=== PATIENT | female | born 1980 | race Two or more races ===

== ENCOUNTER 2021-09-16 00:50 | Inpatient (IN) | payer SELFPAY ==
[2021-09-16] VITALS (7 sets, daily range): BP systolic 116–160; BP diastolic 65–92
[~2021-09-16] VITALS: Ht 170.2 cm; Wt 85.3 kg
--- NOTE | 2021-09-16 01:21 | ED.ADGEN ---
Past Medical History Past Surgical History: Other Additional Past Surgical Histo: BREAST AUG, LIPO General Adult EDM: Chief Complaint: CHEST PAIN HPI: HPI: Patient is a 41 year old female coming in for epigastric pain that radiates to her back. Patient states is been present for about 2 days. Says it comes and goes and is worsening foods, especially are fatty or greasy. Patient says she is sometimes vomiting from the pain. Denies any change in bowel movements or diarrhea. Review of Systems: Review of Systems: All other systems within normal limits except for as noted in the HPI Current Medications: Current Medications Medications (Trade) Dose Ordered Sig/Tung Start Time Stop Time Status Last Admin Dose Admin Fentanyl Citrate (Fentanyl 2ml Vial) 75 mcg 1X ONCE 09/16/21 01:30 09/16/21 01:31 DC 09/16/21 01:58 75 MCG Info (CONTRAST GIVEN -- Rx MONITORING) 1 each PRN DAILY PRN 09/16/21 02:45 09/18/21 02:44 Iohexol (Omnipaque 300 Mg/ml) 75 ml 1X ONCE 09/16/21 02:45 09/16/21 02:46 DC 09/16/21 03:30 75 ML Ondansetron HCl (Zofran) 4 mg 1X ONCE 09/16/21 01:30 09/16/21 01:31 DC 09/16/21 01:55 4 MG Allergies: Allergies: Allergies Coded Allergies Type Severity Reaction Last Updated Verified No Known Drug Allergies 09/16/21 No Physical Exam: PE: Constitutional: Well developed, well nourished, no acute distress, non-toxic appearance. [] HENT: Normocephalic, atraumatic, bilateral external ears normal, nose normal. [] Eyes: PERRLA, conjunctiva normal, no discharge. [] Neck: No rigidity, supple, no stridor. [] Cardiovascular: Regular rate and rhythm, brisk cap refill [] Lungs & Thorax: Non labored symmetric respirations, no tachypnea or respiratory distress [] Abdomen: Soft, nondistended, epigastric tenderness and positive Wan sign. Skin: Warm, dry, no erythema, no rash. [] Back: Unremarkable Extremities: No deformities, range of motion grossly intact, no lower extremity edema [] Neurologic: Alert and oriented X 3, no focal deficits noted. [] Psychologic: Affect normal, judgement normal, mood normal. [] Current Patient Data: Labs: Laboratory Tests Test 09/16/21 01:30 White Blood Count 4.3 x10^3/uL (4.0-11.0) Red Blood Count 4.21 x10^6/uL (3.50-5.40) Hemoglobin 12.5 g/dL (12.0-15.5) Hematocrit 36.6 % (36.0-47.0) Mean Corpuscular Volume 87 fL (79-100) Mean Corpuscular Hemoglobin 30 pg (25-35) Mean Corpuscular Hemoglobin Concent 34 g/dL (31-37) Red Cell Distribution Width 13.0 % (11.5-14.5) Platelet Count 232 x10^3/uL (140-400) Neutrophils (%) (Auto) 53 % (31-73) Lymphocytes (%) (Auto) 33 % (24-48) Monocytes (%) (Auto) 8 % (0-9) Eosinophils (%) (Auto) 5 % (0-3) H Basophils (%) (Auto) 1 % (0-3) Neutrophils # (Auto) 2.3 x10^3/uL (1.8-7.7) Lymphocytes # (Auto) 1.4 x10^3/uL (1.0-4.8) Monocytes # (Auto) 0.3 x10^3/uL (0.0-1.1) Eosinophils # (Auto) 0.2 x10^3/uL (0.0-0.7) Basophils # (Auto) 0.0 x10^3/uL (0.0-0.2) Sodium Level 141 mmol/L (136-145) Potassium Level 3.7 mmol/L (3.5-5.1) Chloride Level 104 mmol/L (98-107) Carbon Dioxide Level 25 mmol/L (21-32) Anion Gap 12 (6-14) Blood Urea Nitrogen 8 mg/dL (7-20) Creatinine 0.9 mg/dL (0.6-1.0) Estimated GFR (Cockcroft-Gault) 69.3 BUN/Creatinine Ratio 9 (6-20) Glucose Level 109 mg/dL (70-99) H Calcium Level 8.6 mg/dL (8.5-10.1) Total Bilirubin 2.6 mg/dL (0.2-1.0) H Direct Bilirubin 1.8 mg/dL (0.0-0.2) H Gamma Glutamyl Transpeptidase 280 U/L (5-55) H Aspartate Amino Transferase (AST) 850 U/L (15-37) H Alanine Aminotransferase (ALT) 888 U/L (14-59) H Alkaline Phosphatase 124 U/L (46-116) H Troponin I High Sensitivity 6 ng/L (4-50) Total Protein 7.0 g/dL (6.4-8.2) Albumin 3.8 g/dL (3.4-5.0) Albumin/Globulin Ratio 1.2 (1.0-1.7) Lipase 80 U/L (73-393) Hepatitis A IgM Antibody Nonreactive (Nonreactive) Hepatitis B Surface Antigen Nonreactive (Nonreactive) Hepatitis B Core IgM Antibody Nonreactive (Nonreactive) Hepatitis C IgG Antibody Nonreactive (Nonreactive) Laboratory Tests 09/16/21 01:30 Laboratory Tests 09/16/21 01:30 Vital Signs: Vital Signs Date Time Temp Pulse Resp B/P (MAP) Pulse Ox O2 Delivery O2 Flow Rate FiO2 09/16/21 03:38 80 13 146/78 (100) 98 Room Air 09/16/21 00:55 98.7 98.7 EKG: EKG: [] Heart Score: C/O Chest Pain: Yes HEART Score for Chest Pain: HEART Score for Chest Pain Response (Comments) Value History Slighlty/Non-Suspicious 0 ECG Normal 0 Age < 45 0 Risk Factors 1 or 2 Risk Factors 1 Troponin < Normal Limit 0 Total 1 Risk Factors: Risk Factors: DM, Current or recent (<one month) smoker, HTN, HLP, family history of CAD, obesity. Risk Scores: Score 0 - 3: 2.5% MACE over next 6 weeks - Discharge Home Score 4 - 6: 20.3% MACE over next 6 weeks - Admit for Clinical Observation Score 7 - 10: 72.7% MACE over next 6 weeks - Early Invasive Strategies Radiology/Procedures: Radiology/Procedures: [facility] [address] [place], [place] [id number] IMAGING REPORT Signed PATIENT: MURALI SOLIS ACCOUNT: [id number] : 1980 LOCATION: ER AGE: 41 SEX: F EXAM STATUS: REG ER ORD. PHYSICIAN: SCARLET WALKER MD REASON: RUQ pain, omni 300 75 ml iv PROCEDURE: CT ABD PELV W/ IV CONTRST ONLY Exam: CT abdomen/pelvis with intravenous contrast Indication: Right upper quadrant pain Comparison: Abdominal ultrasound same day Technique: Helical CT imaging performed of the abdomen and pelvis after the intravenous administration of 75 mL Omnipaque 300 contrast. Sagittal and coronal reformats were obtained. One or more of the following individualized dose reduction techniques were utilized for this examination: 1. Automated exposure control 2. Adjustment of the mA and/or kV according to patient size 3. Use of iterative reconstruction technique. Findings: Lower chest: There are partially visualized bilateral breast implants. The lung bases are clear. Heart is normal in size. Liver: Normal. Gallbladder/Biliary Tree: Gallbladder is mildly distended. There is noncalcified cholelithiasis. There appears to be slight gallbladder wall thickening by CT, which was not appreciated on ultrasound. The common bile duct appears dilated measuring up to 8 mm. No intrahepatic biliary duct dilatation. Pancreas: Normal. Spleen: Normal. Adrenal Glands: Normal. Kidneys/Ureters/Bladder: Kidneys are normal in size and enhance symmetrically. No hydronephrosis. Ureters and bladder are normal. Reproductive Organs: Uterus is anteverted. No adnexal mass. Stomach, small bowel, and colon: The stomach is unremarkable. No small bowel obstruction. The appendix is normal. The colon is normal. Vasculature: No aortic aneurysm. No arterial calcifications. Lymph Nodes: No lymphadenopathy. Peritoneum and retroperitoneum: No free fluid or free air. Bones: No acute osseous abnormality. Miscellaneous: None. IMPRESSION: 1. Cholelithiasis. The gallbladder is mildly distended and there is questionable slight wall thickening although this was not appreciated on ultrasound from earlier in the day. Correlate clinically for acute cholecystitis. 2. Dilated common bile duct measuring 8 mm with abrupt termination at the ampulla. Recommend MRCP to evaluate for obstructing stone or lesion. Electronically signed by: Scarlet Bruno MD (09/16/2021 4:06 AM) [facility] DICTATED and SIGNED BY: SCARLET BRUNO MD DATE: 09/16/21 [id number] [] [facility] [address] [place] [address] IMAGING REPORT Addendum PATIENT: MURALI SOLIS ACCOUNT: [id number] : 1980 LOCATION: ER AGE: 41 SEX: F EXAM STATUS: REG ER ORD. PHYSICIAN: SCARLET WALKER MD REASON: RUQ pain PROCEDURE: ABDOMEN LTD ADDENDUM ADDENDUM #1 Upon further review, the common bile duct is likely mildly dilated. This is better seen on subsequent CT abdomen pelvis from same day. Electronically signed by: Scarlet Bruno MD (09/16/2021 4:10 AM) [facility]AM[facility]ATION: US ABDOMEN LIMITED 09/16/2021 2:02 AM INDICATION: Right upper quadrant pain TECHNIQUE: Lynch scale and color Doppler ultrasound images of the right upper quadrant were obtained. COMPARISON: None. FINDINGS: Liver: The liver is normal in size measuring 13 cm in length. Mildly increased hepatic echogenicity. No focal liver lesion. Gallbladder: The gallbladder is normal in caliber. There is cholelithiasis and sludge in the gallbladder. No gallbladder wall thickening. Bile ducts: The common bile duct is normal measuring 4 mm. No intrahepatic biliary duct dilatation. Right kidney: The right kidney measures 11.5 x 3.8 x 3.8 cm. Normal cortical thickness and echogenicity. No hydronephrosis. Other: IVC is patent at the level of the liver. The pancreas is not well visualized. IMPRESSION: Cholelithiasis and sludge in the gallbladder. No evidence of acute cholecystitis. Electronically signed by: Scarlet Bruno MD (09/16/2021 3:25 AM) [facility] DI[facility]ATED AND SIGNED BY: SCARLET BRUNO MD DATE: 09/16/21 [id number] CC: SCARLET WALEKR MD; SANDRA SOUZA MD ~ EXAMINATION: US ABDOMEN LIMITED 09/16/2021 2:02 AM INDICATION: Right upper quadrant pain TECHNIQUE: Lynch scale and color Doppler ultrasound images of the right upper quadrant were obtained. COMPARISON: None. FINDINGS: Liver: The liver is normal in size measuring 13 cm in length. Mildly increased hepatic echogenicity. No focal liver lesion. Gallbladder: The gallbladder is normal in caliber. There is cholelithiasis and sludge in the gallbladder. No gallbladder wall thickening. Bile ducts: The common bile duct is normal measuring 4 mm. No intrahepatic biliary duct dilatation. Right kidney: The right kidney measures 11.5 x 3.8 x 3.8 cm. Normal cortical thickness and echogenicity. No hydronephrosis. Other: IVC is patent at the level of the liver. The pancreas is not well visualized. IMPRESSION: Cholelithiasis and sludge in the gallbladder. No evidence of acute cholecystitis. Electronically signed by: Scarlet Bruno MD (09/16/2021 3:25 AM) [facility] DICTATED and SIGNED BY: SCARLET BRUNO MD DATE: 09/16/21 [id number] 0 Impression: Patient started on Zosyn for concerning acute cholecystitis versus ascending cholangitis. Consult placed for GI and general surgery Course & Med Decision Making: Course & Med Decision Making Pertinent Labs and Imaging studies reviewed. (See chart for details) [] Dragon Disclaimer: Dragon Disclaimer: This electronic medical record was generated, in whole or in part, using a voice recognition dictation system. Departure Departure Impression: Primary Impression: Acute cholangitis Disposition: ADMITTED INPATIENT Admitting Physician: EVETTE Condition: STABLE Referrals: UNKNOWN PCP NAME (PCP) SCARLET WALKER MD Sep 16, 2021 01:21
[2021-09-16] MEDS ORDERED: ONDANSETRON PF 4 MG/2 ML VIAL. IVP ONE (01:30)
[2021-09-16] MEDS ORDERED: fentaNYL PF VIAL 100 MCG/2 ML VIAL IVP ONE (01:30)
[2021-09-16 01:43] LABS: BASO % 1 % (0-3); EOS # 0.2 x10^3/uL (0.0-0.7); EOS % 5 % (0-3); HEMATOCRIT 36.6 % (36.0-47.0); HEMOGLOBIN 12.5 g/dL (12.0-15.5); LYMPH # 1.4 x10^3/uL (1.0-4.8); LYMPH % 33 % (24-48); MEAN CORPUSCULAR HEMOGLOBIN 30 pg (25-35); MEAN CORPUSCULAR HGB CONC 34 g/dL (31-37); MEAN CORPUSCULAR VOLUME 87 fL (79-100); MONO # 0.3 x10^3/uL (0.0-1.1); MONO % 8 % (0-9); NEUT # 2.3 x10^3/uL (1.8-7.7); NEUT % 53 % (31-73); PLATELET COUNT 232 x10^3/uL (140-400); RED BLOOD COUNT 4.21 x10^6/uL (3.50-5.40); WHITE BLOOD COUNT 4.3 x10^3/uL (4.0-11.0)
[2021-09-16 01:55] LABS: CALCIUM 8.6 mg/dL (8.5-10.1); CREATININE 0.9 mg/dL (0.6-1.0); GFR 69.3; POTASSIUM 3.7 mmol/L (3.5-5.1)
[2021-09-16 02:10] LABS: ALBUMIN 3.8 g/dL (3.4-5.0); ALBUMIN/GLOBULIN RATIO 1.2 (1.0-1.7); TOTAL BILIRUBIN 2.6 mg/dL (0.2-1.0)
[2021-09-16] MEDS ORDERED: CONTRAST GIVEN. MC PRN (02:45)
[2021-09-16] MEDS ORDERED: IOHEXOL 300 MG/ML 100ML VIAL. IV ONE (02:45)
--- NOTE | 2021-09-16 03:27 | RAD ---
EXAMINATION: US ABDOMEN LIMITED 09/16/2021 2:02 AM INDICATION: Right upper quadrant pain TECHNIQUE: Lynch scale and color Doppler ultrasound images of the right upper quadrant were obtained. COMPARISON: None. FINDINGS: Liver: The liver is normal in size measuring 13 cm in length. Mildly increased hepatic echogenicity. No focal liver lesion. Gallbladder: The gallbladder is normal in caliber. There is cholelithiasis and sludge in the gallbla dder. No gallbladder wall thickening. Bile ducts: The common bile duct is normal measuring 4 mm. No intrahepatic biliary duct dilatation. Right kidney: The right kidney measures 11.5 x 3.8 x 3.8 cm. Normal cortical thickness and echogenic ity. No hydronephrosis. Other: IVC is patent at the level of the liver. The pancreas is not well visualized. IMPRESSION: Cholelithiasis and sludge in the gallbladder. No evidence of acute cholecystitis. Electronically signed by: Scarlet Bruno MD (09/16/2021 3:25 AM) [facility]
--- NOTE | 2021-09-16 04:08 | RAD ---
Exam: CT abdomen/pelvis with intravenous contrast Indication: Right upper quadrant pain Comparison: Abdominal ultrasound same day Technique: Helical CT imaging performed of the abdomen and pelvis after the intravenous administratio n of 75 mL Omnipaque 300 contrast. Sagittal and coronal reformats were obtained. One or more of the following individualized dose reduction techniques were utilized for this examinat ion: 1. Automated exposure control 2. Adjustment of the mA and/or kV according to patient size 3. Use of iterative reconstruction technique. Findings: Lower chest: There are partially visualized bilateral breast implants. The lung bases are clear. Hear t is normal in size. Liver: Normal. Gallbladder/Biliary Tree: Gallbladder is mildly distended. There is noncalcified cholelithiasis. Ther e appears to be slight gallbladder wall thickening by CT, which was not appreciated on ultrasound. Th e common bile duct appears dilated measuring up to 8 mm. No intrahepatic biliary duct dilatation. Pancreas: Normal. Spleen: Normal. Adrenal Glands: Normal. Kidneys/Ureters/Bladder: Kidneys are normal in size and enhance symmetrically. No hydronephrosis. Ure ters and bladder are normal. Reproductive Organs: Uterus is anteverted. No adnexal mass. Stomach, small bowel, and colon: The stomach is unremarkable. No small bowel obstruction. The appendi x is normal. The colon is normal. Vasculature: No aortic aneurysm. No arterial calcifications. Lymph Nodes: No lymphadenopathy. Peritoneum and retroperitoneum: No free fluid or free air. Bones: No acute osseous abnormality. Miscellaneous: None. IMPRESSION: 1. Cholelithiasis. The gallbladder is mildly distended and there is questionable slight wall thicken ing although this was not appreciated on ultrasound from earlier in the day. Correlate clinically for acute cholecystitis. 2. Dilated common bile duct measuring 8 mm with abrupt termination at the ampulla. Recommend MRCP to evaluate for obstructing stone or lesion. Electronically signed by: Scarlet Bruno MD (09/16/2021 4:06 AM) [facility]
[2021-09-16] MEDS ORDERED: ONDANSETRON PF 4 MG/2 ML VIAL. IVP PRN ×2 (05:00→09:15)
[2021-09-16] MEDS ORDERED: MORPHINE SULFATE 4 MG/ML INJ. IVP PRN (05:00)
[2021-09-16] MEDS ORDERED: PIPERACILLIN/TAZOBACTAM 3.375 GM in IV NORMAL SALINE 50ML 50 ML IV ONE (05:00)
[2021-09-16 05:13] LABS: BILIRUBIN,URINE SMALL (NEG); CLARITY,URINE HAZY; COLOR,URINE YELLOW; NITRITE,URINE NEGATIVE (NEG); PH,URINE 7.5 (<5.0-8.0); PROTEIN,URINE NEGATIVE (NEG-TRACE); UROBILINOGEN,URINE >=8.0 mg/dL (0.2 mg/dL)
[2021-09-16 05:14] LABS: BACTERIA,URINE 0 /HPF (0-FEW); WBC,URINE RARE /HPF (0-4)
[2021-09-16] MEDS: IV NORMAL SALINE 1000ML BAG 1,000 ML IV SCH ×4 (05:56→19:15)
[2021-09-16 06:05] LABS: INFLUENZA A PATIENT NEGATIVE (NEGATIVE); INFLUENZA B PATIENT NEGATIVE (NEGATIVE)
[2021-09-16] MEDS ORDERED: OMEP1CAP32 PO (06:24)
--- NOTE | 2021-09-16 08:12 | PDOC2 ---
GIOVANI FINE [employer] 09/16/21 0812: CONSULT Date of Consult Date of Consult DATE: 09/16/21 TIME: 08:02 Reason for Consult Reason for Consult: acute cholecystitis Referring Physician Referring Physician: ER Identification/Chief Complaint Chief Complaint abdominal pain Source Source: Chart review, Patient History of Present Illness Reason for Visit: Reports epigastric abdominal pain that radiates to back. Began on Wed after a fast food meal and never improved. Associated nausea and emesis. Denies constipation or diarrhea. One similar episode many years ago, however resolved fairly quickly then. Past Medical History Past Medical History no pertinent hx Past Surgical History Past Surgical History: Tubal Ligation, Other (breast augmentation, abdominoplasty) Family History Family History: Other (noncontributory to current illness ) Social History No ALCOHOL: none Drugs: None Lives: Alone Current Problem List Problem List Problems Medical Problems: (1) Acute cholangitis Status: Acute Current Medications Current Medications Current Medications Ondansetron HCl (Zofran) 4 mg 1X ONCE IVP Last administered on 09/16/21at 01:55; Start 09/16/21 at 01:30; Stop 09/16/21 at 01:31; Status DC Fentanyl Citrate (Fentanyl 2ml Vial) 75 mcg 1X ONCE IVP Last administered on 09/16/21at 01:58; Start 09/16/21 at 01:30; Stop 09/16/21 at 01:31; Status DC Iohexol (Omnipaque 300 Mg/ml) 75 ml 1X ONCE IV Last administered on 09/16/21at 03:30; Start 09/16/21 at 02:45; Stop 09/16/21 at 02:46; Status DC Info (CONTRAST GIVEN -- Rx MONITORING) 1 each PRN DAILY PRN MC SEE COMMENTS; Start 09/16/21 at 02:45; Stop 09/18/21 at 02:44 Ondansetron HCl (Zofran) 4 mg PRN Q8HRS PRN IVP NAUSEA/VOMITING; Start 09/16/21 at 05:00; Stop 09/17/21 at 04:59 Morphine Sulfate (Morphine Sulfate) 4 mg PRN Q2HR PRN IVP PAIN Last administered on 09/16/21at 06:09; Start 09/16/21 at 05:00; Stop 09/17/21 at 04:59 Sodium Chloride 1,000 ml @ 100 mls/hr Q10H IV Last administered on 09/16/21at 05:56; Start 09/16/21 at 05:00; Stop 09/17/21 at 04:59 Piperacillin Sod/ Tazobactam Sod 3.375 gm/Sodium Chloride 50 ml @ 100 mls/hr 1X ONCE IV Last administered on 09/16/21at 06:08; Start 09/16/21 at 05:00; Stop 09/16/21 at 05:29; Status DC Active Scripts Active Reported Omeprazole-Bicarb 20-1,100 Cap (Omeprazole/Sodium Bicarbonate) 1 Each Capsule 1 Each PO HS PRN Allergies Allergies: Coded Allergies: No Known Drug Allergies (Unverified , 09/16/21) ROS General: YES: Chills; No: Other (fevers ) PSYCHOLOGICAL ROS: No: Anxiety, Depression Eyes: No Blurry vision, No Double vision HEENT: No: Heacaches, Sore Throat Hematological and Lymphatic: No: Bleeding Problems, Blood Clots Respiratory: No: Cough, Shortness of breath Cardiovascular: No Chest Pain, No Palpitations Gastrointestinal: Yes Other (see hpi) Genitourinary: No Dysuria, No Retention Musculoskeletal: No Joint Pain, No Muscle Pain Neurological: No Impaired Coord/balance, No Numbness/Tingling Skin: No Pruritus, No Rash Physical Exam General: Alert, Oriented X3, Cooperative HEENT: Atraumatic, PERRLA Lungs: Clear to auscultation, Normal air movement Heart: Regular rate, Normal S1, Normal S2 Abdomen: Other (Soft, ND, ttp RUQ) Extremities: No clubbing, No cyanosis Skin: No rashes, No breakdown Neuro: Normal gait, Normal speech Psych/Mental Status: Mental status NL, Mood NL MUSCULOSKELETAL: No deformity, No swelling Vitals VITALS Vital Signs Date Time Temp Pulse Resp B/P (MAP) Pulse Ox O2 Delivery O2 Flow Rate FiO2 09/16/21 06:40 Room Air 09/16/21 05:03 60 14 175/86 (115) 98 09/16/21 00:55 98.7 98.7 Labs Labs Laboratory Tests Test 09/16/21 01:30 09/16/21 04:54 09/16/21 04:58 09/16/21 05:40 White Blood Count 4.3 x10^3/uL (4.0-11.0) Red Blood Count 4.21 x10^6/uL (3.50-5.40) Hemoglobin 12.5 g/dL (12.0-15.5) Hematocrit 36.6 % (36.0-47.0) Mean Corpuscular Volume 87 fL (79-100) Mean Corpuscular Hemoglobin 30 pg (25-35) Mean Corpuscular Hemoglobin Concent 34 g/dL (31-37) Red Cell Distribution Width 13.0 % (11.5-14.5) Platelet Count 232 x10^3/uL (140-400) Neutrophils (%) (Auto) 53 % (31-73) Lymphocytes (%) (Auto) 33 % (24-48) Monocytes (%) (Auto) 8 % (0-9) Eosinophils (%) (Auto) 5 % (0-3) Basophils (%) (Auto) 1 % (0-3) Neutrophils # (Auto) 2.3 x10^3/uL (1.8-7.7) Lymphocytes # (Auto) 1.4 x10^3/uL (1.0-4.8) Monocytes # (Auto) 0.3 x10^3/uL (0.0-1.1) Eosinophils # (Auto) 0.2 x10^3/uL (0.0-0.7) Basophils # (Auto) 0.0 x10^3/uL (0.0-0.2) Sodium Level 141 mmol/L (136-145) Potassium Level 3.7 mmol/L (3.5-5.1) Chloride Level 104 mmol/L (98-107) Carbon Dioxide Level 25 mmol/L (21-32) Anion Gap 12 (6-14) Blood Urea Nitrogen 8 mg/dL (7-20) Creatinine 0.9 mg/dL (0.6-1.0) Estimated GFR (Cockcroft-Gault) 69.3 BUN/Creatinine Ratio 9 (6-20) Glucose Level 109 mg/dL (70-99) Calcium Level 8.6 mg/dL (8.5-10.1) Total Bilirubin 2.6 mg/dL (0.2-1.0) Direct Bilirubin 1.8 mg/dL (0.0-0.2) Gamma Glutamyl Transpeptidase 280 U/L (5-55) Aspartate Amino Transf (AST/SGOT) 850 U/L (15-37) Alanine Aminotransferase (ALT/SGPT) 888 U/L (14-59) Alkaline Phosphatase 124 U/L (46-116) Troponin I High Sensitivity 6 ng/L (4-50) Total Protein 7.0 g/dL (6.4-8.2) Albumin 3.8 g/dL (3.4-5.0) Albumin/Globulin Ratio 1.2 (1.0-1.7) Lipase 80 U/L (73-393) Hepatitis A IgM Antibody Nonreactive (Nonreactive) Hepatitis B Surface Antigen Nonreactive (Nonreactive) Hepatitis B Core IgM Antibody Nonreactive (Nonreactive) Hepatitis C IgG Antibody Nonreactive (Nonreactive) Urine Collection Type Unknown Urine Color Yellow Urine Clarity Hazy Urine pH 7.5 (<5.0-8.0) Urine Specific Viola 1.015 (1.000-1.030) Urine Protein Negative mg/dL (NEG-TRACE) Urine Glucose (UA) Negative mg/dL (NEG) Urine Ketones (Stick) 15 mg/dL (NEG) Urine Blood Moderate (NEG) Urine Nitrite Negative (NEG) Urine Bilirubin Small (NEG) Urine Urobilinogen Dipstick >=8.0 mg/dL (0.2 mg/dL) Urine Leukocyte Esterase Negative (NEG) Urine RBC 6-10 /HPF (0-2) Urine WBC Rare /HPF (0-4) Urine Squamous Epithelial Cells Few /LPF Urine Bacteria 0 /HPF (0-FEW) Urine Mucus Slight /LPF Bedside Urine HCG, Qualitative Hcg negative (Negative) Influenza Type A Antigen Negative (NEGATIVE) Influenza Type B Antigen Negative (NEGATIVE) SARS-CoV-2 Antigen (Rapid) Negative (NEGATIVE) Laboratory Tests Test 09/16/21 01:30 09/16/21 04:54 09/16/21 04:58 09/16/21 05:40 White Blood Count 4.3 x10^3/uL (4.0-11.0) Red Blood Count 4.21 x10^6/uL (3.50-5.40) Hemoglobin 12.5 g/dL (12.0-15.5) Hematocrit 36.6 % (36.0-47.0) Mean Corpuscular Volume 87 fL (79-100) Mean Corpuscular Hemoglobin 30 pg (25-35) Mean Corpuscular Hemoglobin Concent 34 g/dL (31-37) Red Cell Distribution Width 13.0 % (11.5-14.5) Platelet Count 232 x10^3/uL (140-400) Neutrophils (%) (Auto) 53 % (31-73) Lymphocytes (%) (Auto) 33 % (24-48) Monocytes (%) (Auto) 8 % (0-9) Eosinophils (%) (Auto) 5 % (0-3) Basophils (%) (Auto) 1 % (0-3) Neutrophils # (Auto) 2.3 x10^3/uL (1.8-7.7) Lymphocytes # (Auto) 1.4 x10^3/uL (1.0-4.8) Monocytes # (Auto) 0.3 x10^3/uL (0.0-1.1) Eosinophils # (Auto) 0.2 x10^3/uL (0.0-0.7) Basophils # (Auto) 0.0 x10^3/uL (0.0-0.2) Sodium Level 141 mmol/L (136-145) Potassium Level 3.7 mmol/L (3.5-5.1) Chloride Level 104 mmol/L (98-107) Carbon Dioxide Level 25 mmol/L (21-32) Anion Gap 12 (6-14) Blood Urea Nitrogen 8 mg/dL (7-20) Creatinine 0.9 mg/dL (0.6-1.0) Estimated GFR (Cockcroft-Gault) 69.3 BUN/Creatinine Ratio 9 (6-20) Glucose Level 109 mg/dL (70-99) Calcium Level 8.6 mg/dL (8.5-10.1) Total Bilirubin 2.6 mg/dL (0.2-1.0) Direct Bilirubin 1.8 mg/dL (0.0-0.2) Gamma Glutamyl Transpeptidase 280 U/L (5-55) Aspartate Amino Transf (AST/SGOT) 850 U/L (15-37) Alanine Aminotransferase (ALT/SGPT) 888 U/L (14-59) Alkaline Phosphatase 124 U/L (46-116) Troponin I High Sensitivity 6 ng/L (4-50) Total Protein 7.0 g/dL (6.4-8.2) Albumin 3.8 g/dL (3.4-5.0) Albumin/Globulin Ratio 1.2 (1.0-1.7) Lipase 80 U/L (73-393) Hepatitis A IgM Antibody Nonreactive (Nonreactive) Hepatitis B Surface Antigen Nonreactive (Nonreactive) Hepatitis B Core IgM Antibody Nonreactive (Nonreactive) Hepatitis C IgG Antibody Nonreactive (Nonreactive) Urine Collection Type Unknown Urine Color Yellow Urine Clarity Hazy Urine pH 7.5 (<5.0-8.0) Urine Specific Viola 1.015 (1.000-1.030) Urine Protein Negative mg/dL (NEG-TRACE) Urine Glucose (UA) Negative mg/dL (NEG) Urine Ketones (Stick) 15 mg/dL (NEG) Urine Blood Moderate (NEG) Urine Nitrite Negative (NEG) Urine Bilirubin Small (NEG) Urine Urobilinogen Dipstick >=8.0 mg/dL (0.2 mg/dL) Urine Leukocyte Esterase Negative (NEG) Urine RBC 6-10 /HPF (0-2) Urine WBC Rare /HPF (0-4) Urine Squamous Epithelial Cells Few /LPF Urine Bacteria 0 /HPF (0-FEW) Urine Mucus Slight /LPF Bedside Urine HCG, Qualitative Hcg negative (Negative) Influenza Type A Antigen Negative (NEGATIVE) Influenza Type B Antigen Negative (NEGATIVE) SARS-CoV-2 Antigen (Rapid) Negative (NEGATIVE) Assessment/Plan Assessment/Plan cholecystitis plan lap yousuf with grams, may need post ERCP if CBD stone consult, chart 30 min DANIEL NGUYEN MD 09/16/21 1426: CONSULT Assessment/Plan Assessment/Plan Pt seen and examined by myself; 41 year old female who was admitted due to abdominal pain which started last week. The pain has been recurrent, and located in the upper mid abdomen. She denies inciting or relieving factors, but admits to nausea. The pain does not radiate. PMH/PSH/SH as above; ROS: as above, other systems negative; exam: alert, oriented, no neck masses, no scleral icterus, lungs clear, heart RR and R, abdomen soft, prior scars from abdominoplasty, tender upper mid abdomen without guarding, ext neg for edema. labs/xrays reviewed; A/P) 41 year old female with suspected calculous cholecystitis, concerning for choledocholithiasis. Plan for lap yousuf, grams intraop. The details and risks of surgery were reviewed with the patient. She understands and would like to proceed. Time spent with patient 25 min. GIOVANI FINE APRN Sep 16, 2021 08:12 DANIEL NGUYEN MD Sep 16, 2021 14:26
[2021-09-16] MEDS ORDERED: ZOLPIDEM 5 MG TABLET. PO PRN (09:15)
[2021-09-16] MEDS ORDERED: DOCUSATE SODIUM 100 MG CAPSULE. PO PRN (09:15)
[2021-09-16] MEDS ORDERED: diphenhydrAMINE HCL 25 MG CAPSULE PO PRN ×2 (09:15)
[2021-09-16] MEDS ORDERED: ACETAMINOPHEN 325 MG TABLET. PO PRN (09:15)
[2021-09-16] MEDS ORDERED: LORazepam 0.5 MG TABLET PO PRN (09:15)
[2021-09-16] MEDS ORDERED: DEXTROSE 50% 25 GM / 50ML DISP.SYRIN. IV PRN (09:15)
[2021-09-16] MEDS ORDERED: MORPHINE SULFATE 2 MG/ML INJ. IV PRN (09:15)
[2021-09-16] MEDS ORDERED: PROCHLORPERAZINE 10 MG/2 ML VIAL. IV PRN (09:15)
[2021-09-16] MEDS ORDERED: SENNOSIDES 8.6 MG TABLET PO PRN (09:15)
[2021-09-16] MEDS ORDERED: diphenhydrAMINE 50 MG/ML VIAL IVP PRN (09:15)
--- NOTE | 2021-09-16 09:17 | PDOC1 ---
History and Physical Date of Service: DOS: DATE: 09/16/21 TIME: 09:03 Chief Complaint: Chief Complain: Abdominal pain/chest pain. History of Present Illness: HPI: 41 year old female coming in for epigastric pain that radiates to her back. Patient states is been present for about 2 days. Says it comes and goes and is worsening foods, especially are fatty or greasy. Patient says she is sometimes vomiting from the pain. Denies any change in bowel movements or diarrhea. Past Medical/Surgical History: PMH/PSH: Past Surgical History: BREAST AUG, LIPO Allergies: Allergies: Coded Allergies: No Known Drug Allergies (Unverified , 09/16/21) Family History: Family History: Reviewed with no relative findings in the chart Social History: Social History: Denies alcohol, tobacco or drug abuse Current Medications: Current Medications Current Medications Ondansetron HCl (Zofran) 4 mg 1X ONCE IVP Last administered on 09/16/21at 01:55; Start 09/16/21 at 01:30; Stop 09/16/21 at 01:31; Status DC Fentanyl Citrate (Fentanyl 2ml Vial) 75 mcg 1X ONCE IVP Last administered on 09/16/21at 01:58; Start 09/16/21 at 01:30; Stop 09/16/21 at 01:31; Status DC Iohexol (Omnipaque 300 Mg/ml) 75 ml 1X ONCE IV Last administered on 09/16/21at 03:30; Start 09/16/21 at 02:45; Stop 09/16/21 at 02:46; Status DC Info (CONTRAST GIVEN -- Rx MONITORING) 1 each PRN DAILY PRN MC SEE COMMENTS; Start 09/16/21 at 02:45; Stop 09/18/21 at 02:44 Ondansetron HCl (Zofran) 4 mg PRN Q8HRS PRN IVP NAUSEA/VOMITING; Start 09/16/21 at 05:00; Stop 09/17/21 at 04:59 Morphine Sulfate (Morphine Sulfate) 4 mg PRN Q2HR PRN IVP PAIN Last administered on 09/16/21at 06:09; Start 09/16/21 at 05:00; Stop 09/17/21 at 04:59 Sodium Chloride 1,000 ml @ 100 mls/hr Q10H IV Last administered on 09/16/21at 05:56; Start 09/16/21 at 05:00; Stop 09/17/21 at 04:59 Piperacillin Sod/ Tazobactam Sod 3.375 gm/Sodium Chloride 50 ml @ 100 mls/hr 1X ONCE IV Last administered on 09/16/21at 06:08; Start 09/16/21 at 05:00; Stop 09/16/21 at 05:29; Status DC Cefazolin Sodium/ Dextrose 50 ml @ 100 mls/hr 1X PREOP PRN IV PRIOR TO PROCEDURE; Start 09/16/21 at 09:00; Stop 09/17/21 at 08:59 Active Scripts Active Reported Omeprazole-Bicarb 20-1,100 Cap (Omeprazole/Sodium Bicarbonate) 1 Each Capsule 1 Each PO HS PRN ROS: Review of Systems Review of System REVIEW OF SYSTEMS: GENERAL: Denies weakness SKIN: No bruising, hair changes or rashes. EYES: No blurred, double or loss of vision. NOSE AND THROAT: No history of nosebleeds, hoarseness or sore throat. HEART: No history of palpitations, chest pain or shortness of breath on exertion. LUNGS: Denies cough, hemoptysis, wheezing or shortness of breath. GASTROINTESTINAL: Denies changes in appetite, nausea, vomiting, diarrhea or constipation. GENITOURINARY: No history of frequency, urgency, hesitancy or nocturia. NEUROLOGIC: Denies history of numbness, tingling, or tremor. PSYCHIATRIC: No history of panic, anxiety or depression. ENDOCRINE: No history of heat or cold intolerance, polyuria or polydipsia. EXTREMITIES: Denies joint pain, pain on walking or stiffness. Physical Exam: Vital Signs: Vital Signs Date Time Temp Pulse Resp B/P (MAP) Pulse Ox O2 Delivery O2 Flow Rate FiO2 09/16/21 07:00 98.3 58 16 116/71 (86) 97 Room Air 98.3 Physcial Exam: GEN: No apparent distress. Alert and oriented HEENT: Normal cephalic, atraumatic, external auditory canals are patent EYES: Extraocular muscles are intact, pupil are equally round and reactive to light and accommodation MUSCULOSKELETAL: Well developed , well nourished, good range of motion ENDOCRINE: No thyromegaly was palpated LYMPHATICS: No cervical chain or axillary nodes were noted HEMATOPOIETIC: No bruising NECK: Supple, no JVD, no thyromegaly was noted LUNGS: Clear to auscultation in all lung jiménez without rhonchi or wheezing HEART: RRR, S!, S2 present. Peripheral pulses intact, no obvious murmurs noted ABDOMEN: Soft, nontender. Positive bowel sounds, no organomegaly, normal bowel sounds EXTREMITIES: Without clubbing, cyanosis, or edema. Pedal pulses intact. Negative Homans sign NEUROLOGIC: Normal speech and tone. A&O x 3, moves all extremities, no obvious focal deficits PSYCHIATRIC: Normal affect, normal mood. Stable SKIN: No ulcerations or rashes, good skin turgor, no jaundice VASCULAR: Good capillary refill, neurovascular bundle appears to be intact Labs: Labs: Laboratory Tests Test 09/16/21 01:30 09/16/21 04:54 09/16/21 04:58 09/16/21 05:40 White Blood Count 4.3 x10^3/uL (4.0-11.0) Red Blood Count 4.21 x10^6/uL (3.50-5.40) Hemoglobin 12.5 g/dL (12.0-15.5) Hematocrit 36.6 % (36.0-47.0) Mean Corpuscular Volume 87 fL (79-100) Mean Corpuscular Hemoglobin 30 pg (25-35) Mean Corpuscular Hemoglobin Concent 34 g/dL (31-37) Red Cell Distribution Width 13.0 % (11.5-14.5) Platelet Count 232 x10^3/uL (140-400) Neutrophils (%) (Auto) 53 % (31-73) Lymphocytes (%) (Auto) 33 % (24-48) Monocytes (%) (Auto) 8 % (0-9) Eosinophils (%) (Auto) 5 % (0-3) Basophils (%) (Auto) 1 % (0-3) Neutrophils # (Auto) 2.3 x10^3/uL (1.8-7.7) Lymphocytes # (Auto) 1.4 x10^3/uL (1.0-4.8) Monocytes # (Auto) 0.3 x10^3/uL (0.0-1.1) Eosinophils # (Auto) 0.2 x10^3/uL (0.0-0.7) Basophils # (Auto) 0.0 x10^3/uL (0.0-0.2) Sodium Level 141 mmol/L (136-145) Potassium Level 3.7 mmol/L (3.5-5.1) Chloride Level 104 mmol/L (98-107) Carbon Dioxide Level 25 mmol/L (21-32) Anion Gap 12 (6-14) Blood Urea Nitrogen 8 mg/dL (7-20) Creatinine 0.9 mg/dL (0.6-1.0) Estimated GFR (Cockcroft-Gault) 69.3 BUN/Creatinine Ratio 9 (6-20) Glucose Level 109 mg/dL (70-99) Calcium Level 8.6 mg/dL (8.5-10.1) Total Bilirubin 2.6 mg/dL (0.2-1.0) Direct Bilirubin 1.8 mg/dL (0.0-0.2) Gamma Glutamyl Transpeptidase 280 U/L (5-55) Aspartate Amino Transf (AST/SGOT) 850 U/L (15-37) Alanine Aminotransferase (ALT/SGPT) 888 U/L (14-59) Alkaline Phosphatase 124 U/L (46-116) Troponin I High Sensitivity 6 ng/L (4-50) Total Protein 7.0 g/dL (6.4-8.2) Albumin 3.8 g/dL (3.4-5.0) Albumin/Globulin Ratio 1.2 (1.0-1.7) Lipase 80 U/L (73-393) Hepatitis A IgM Antibody Nonreactive (Nonreactive) Hepatitis B Surface Antigen Nonreactive (Nonreactive) Hepatitis B Core IgM Antibody Nonreactive (Nonreactive) Hepatitis C IgG Antibody Nonreactive (Nonreactive) Urine Collection Type Unknown Urine Color Yellow Urine Clarity Hazy Urine pH 7.5 (<5.0-8.0) Urine Specific [place] 1.015 (1.000-1.030) Urine Protein Negative mg/dL (NEG-TRACE) Urine Glucose (UA) Negative mg/dL (NEG) Urine Ketones (Stick) 15 mg/dL (NEG) Urine Blood Moderate (NEG) Urine Nitrite Negative (NEG) Urine Bilirubin Small (NEG) Urine Urobilinogen Dipstick >=8.0 mg/dL (0.2 mg/dL) Urine Leukocyte Esterase Negative (NEG) Urine RBC 6-10 /HPF (0-2) Urine WBC Rare /HPF (0-4) Urine Squamous Epithelial Cells Few /LPF Urine Bacteria 0 /HPF (0-FEW) Urine Mucus Slight /LPF Bedside Urine HCG, Qualitative Hcg negative (Negative) Influenza Type A Antigen Negative (NEGATIVE) Influenza Type B Antigen Negative (NEGATIVE) SARS-CoV-2 Antigen (Rapid) Negative (NEGATIVE) Laboratory Tests Test 09/16/21 01:30 09/16/21 04:54 09/16/21 04:58 09/16/21 05:40 White Blood Count 4.3 x10^3/uL (4.0-11.0) Red Blood Count 4.21 x10^6/uL (3.50-5.40) Hemoglobin 12.5 g/dL (12.0-15.5) Hematocrit 36.6 % (36.0-47.0) Mean Corpuscular Volume 87 fL (79-100) Mean Corpuscular Hemoglobin 30 pg (25-35) Mean Corpuscular Hemoglobin Concent 34 g/dL (31-37) Red Cell Distribution Width 13.0 % (11.5-14.5) Platelet Count 232 x10^3/uL (140-400) Neutrophils (%) (Auto) 53 % (31-73) Lymphocytes (%) (Auto) 33 % (24-48) Monocytes (%) (Auto) 8 % (0-9) Eosinophils (%) (Auto) 5 % (0-3) Basophils (%) (Auto) 1 % (0-3) Neutrophils # (Auto) 2.3 x10^3/uL (1.8-7.7) Lymphocytes # (Auto) 1.4 x10^3/uL (1.0-4.8) Monocytes # (Auto) 0.3 x10^3/uL (0.0-1.1) Eosinophils # (Auto) 0.2 x10^3/uL (0.0-0.7) Basophils # (Auto) 0.0 x10^3/uL (0.0-0.2) Sodium Level 141 mmol/L (136-145) Potassium Level 3.7 mmol/L (3.5-5.1) Chloride Level 104 mmol/L (98-107) Carbon Dioxide Level 25 mmol/L (21-32) Anion Gap 12 (6-14) Blood Urea Nitrogen 8 mg/dL (7-20) Creatinine 0.9 mg/dL (0.6-1.0) Estimated GFR (Cockcroft-Gault) 69.3 BUN/Creatinine Ratio 9 (6-20) Glucose Level 109 mg/dL (70-99) Calcium Level 8.6 mg/dL (8.5-10.1) Total Bilirubin 2.6 mg/dL (0.2-1.0) Direct Bilirubin 1.8 mg/dL (0.0-0.2) Gamma Glutamyl Transpeptidase 280 U/L (5-55) Aspartate Amino Transf (AST/SGOT) 850 U/L (15-37) Alanine Aminotransferase (ALT/SGPT) 888 U/L (14-59) Alkaline Phosphatase 124 U/L (46-116) Troponin I High Sensitivity 6 ng/L (4-50) Total Protein 7.0 g/dL (6.4-8.2) Albumin 3.8 g/dL (3.4-5.0) Albumin/Globulin Ratio 1.2 (1.0-1.7) Lipase 80 U/L (73-393) Hepatitis A IgM Antibody Nonreactive (Nonreactive) Hepatitis B Surface Antigen Nonreactive (Nonreactive) Hepatitis B Core IgM Antibody Nonreactive (Nonreactive) Hepatitis C IgG Antibody Nonreactive (Nonreactive) Urine Collection Type Unknown Urine Color Yellow Urine Clarity Hazy Urine pH 7.5 (<5.0-8.0) Urine Specific [place] 1.015 (1.000-1.030) Urine Protein Negative mg/dL (NEG-TRACE) Urine Glucose (UA) Negative mg/dL (NEG) Urine Ketones (Stick) 15 mg/dL (NEG) Urine Blood Moderate (NEG) Urine Nitrite Negative (NEG) Urine Bilirubin Small (NEG) Urine Urobilinogen Dipstick >=8.0 mg/dL (0.2 mg/dL) Urine Leukocyte Esterase Negative (NEG) Urine RBC 6-10 /HPF (0-2) Urine WBC Rare /HPF (0-4) Urine Squamous Epithelial Cells Few /LPF Urine Bacteria 0 /HPF (0-FEW) Urine Mucus Slight /LPF Bedside Urine HCG, Qualitative Hcg negative (Negative) Influenza Type A Antigen Negative (NEGATIVE) Influenza Type B Antigen Negative (NEGATIVE) SARS-CoV-2 Antigen (Rapid) Negative (NEGATIVE) Images: Images PROCEDURE: CT ABD PELV W/ IV CONTRST ONLY Exam: CT abdomen/pelvis with intravenous contrast Indication: Right upper quadrant pain Comparison: Abdominal ultrasound same day Technique: Helical CT imaging performed of the abdomen and pelvis after the intravenous administration of 75 mL Omnipaque 300 contrast. Sagittal and coronal reformats were obtained. One or more of the following individualized dose reduction techniques were utilized for this examination: 1. Automated exposure control 2. Adjustment of the mA and/or kV according to patient size 3. Use of iterative reconstruction technique. Findings: Lower chest: There are partially visualized bilateral breast implants. The lung bases are clear. Heart is normal in size. Liver: Normal. Gallbladder/Biliary Tree: Gallbladder is mildly distended. There is noncalcified cholelithiasis. There appears to be slight gallbladder wall thickening by CT, which was not appreciated on ultrasound. The common bile duct appears dilated measuring up to 8 mm. No intrahepatic biliary duct dilatation. Pancreas: Normal. Spleen: Normal. Adrenal Glands: Normal. Kidneys/Ureters/Bladder: Kidneys are normal in size and enhance symmetrically. No hydronephrosis. Ureters and bladder are normal. Reproductive Organs: Uterus is anteverted. No adnexal mass. Stomach, small bowel, and colon: The stomach is unremarkable. No small bowel obstruction. The appendix is normal. The colon is normal. Vasculature: No aortic aneurysm. No arterial calcifications. Lymph Nodes: No lymphadenopathy. Peritoneum and retroperitoneum: No free fluid or free air. Bones: No acute osseous abnormality. Miscellaneous: None. IMPRESSION: 1. Cholelithiasis. The gallbladder is mildly distended and there is questionable slight wall thickening although this was not appreciated on ultrasound from earlier in the day. Correlate clinically for acute cholecystitis. 2. Dilated common bile duct measuring 8 mm with abrupt termination at the ampulla. Recommend MRCP to evaluate for obstructing stone or lesion. PROCEDURE: ABDOMEN LTD ADDENDUM ADDENDUM #1 Upon further review, the common bile duct is likely mildly dilated. This is better seen on subsequent CT abdomen pelvis from same day. Electronically signed by: Scarlet Bruno MD (09/16/2021 4:10 AM) [facility]AM[facility]ATION: US ABDOMEN LIMITED 09/16/2021 2:02 AM INDICATION: Right upper quadrant pain TECHNIQUE: Lynch scale and color Doppler ultrasound images of the right upper quadrant were obtained. COMPARISON: None. FINDINGS: Liver: The liver is normal in size measuring 13 cm in length. Mildly increased hepatic echogenicity. No focal liver lesion. Gallbladder: The gallbladder is normal in caliber. There is cholelithiasis and sludge in the gallbladder. No gallbladder wall thickening. Bile ducts: The common bile duct is normal measuring 4 mm. No intrahepatic biliary duct dilatation. Right kidney: The right kidney measures 11.5 x 3.8 x 3.8 cm. Normal cortical thickness and echogenicity. No hydronephrosis. Other: IVC is patent at the level of the liver. The pancreas is not well visual ized. IMPRESSION: Cholelithiasis and sludge in the gallbladder. No evidence of acute cholecystitis. Assessment/Plan Assessment/Plan Acute abdominal pain secondary to cholelithiasis Choledocholithiasis Transaminitis suggestive of obstructive biliary disease Admit to hospitalist service for further management General surgery consult Continue IV fluids IV pain management Lovenox for DVT prophylaxis Protonix GI prophylaxis NPO CODE STATUS full Discussed with RN and SW Disposition inpatient management as above DPOA: Justifications for Admission Other Justification SHILO COFFEY MD Sep 16, 2021 09:17
[2021-09-16] MEDS: ENOXAPARIN 40 MG/0.4 ML SYRINGE. SQ SCH (09:41)
[2021-09-16] MEDS ORDERED: BUPIVACAINE-EPI 0.5% 30 ML VIAL KIT. ONE ×2 (12:19→13:13)
[2021-09-16] MEDS ORDERED: IOHEXOL 300 MG/ML 50 ML VIAL. ONE (12:19)
[2021-09-16] MEDS ORDERED: SURGICEL HEMOSTAT 4X8 EACH. ONE (12:19)
[2021-09-16] MEDS ORDERED: ROCURONIUM 50 MG/5 ML VIAL. ONE (12:29)
[2021-09-16] MEDS ORDERED: LIDOCAINE 2% PF 5 ML VIAL. ONE (12:29)
[2021-09-16] MEDS ORDERED: fentaNYL PF VIAL 100 MCG/2 ML VIAL ONE ×2 (12:29→14:57)
[2021-09-16] MEDS ORDERED: ONDANSETRON PF 4 MG/2 ML VIAL. ONE (12:29)
[2021-09-16] MEDS ORDERED: DEXAMETHASONE SOD PHOS 4 MG/ML VIAL ONE (12:29)
[2021-09-16] MEDS ORDERED: PROPOFOL 10 MG/ML (20ML) VIAL. IV ONE (12:29)
[2021-09-16] MEDS ORDERED: MIDAZOLAM HCL/PF 2 MG/2 ML VIAL. ONE (12:40)
[2021-09-16] MEDS ORDERED: MORPHINE SULFATE 2 MG/ML INJ. IVP PRN (12:45)
[2021-09-16] MEDS ORDERED: HYDROmorphone 2 MG/ML INJ. IVP PRN (12:45)
[2021-09-16] MEDS ORDERED: IV RINGERS,LACTATED 1000ML 1,000 ML IV SCH (12:45)
[2021-09-16] MEDS ORDERED: PROCHLORPERAZINE 10 MG/2 ML VIAL. IVP PRN (12:45)
[2021-09-16] MEDS ORDERED: fentaNYL PF VIAL 100 MCG/2 ML VIAL IVP PRN (12:45)
[2021-09-16] MEDS ORDERED: SUCCINYLCHOLINE 200 MG/10 ML VIAL. ONE (13:05)
[2021-09-16] MEDS ORDERED: HYDROmorphone 2 MG/ML INJ. ONE (13:28)
[2021-09-16] MEDS ORDERED: KETOROLAC 30 MG/ML VIAL. ONE (13:28)
[2021-09-16] MEDS ORDERED: NEOSTIGMINE METHYLSULFATE 5 MG/5 ML SYRINGE. ONE (13:33)
[2021-09-16] MEDS ORDERED: GLYCOPYRROLATE 1 MG/5 ML VIAL. ONE (13:33)
--- NOTE | 2021-09-16 14:21 | PDOC4 ---
Operative Note Operative Note Operative Note: Preoperative Diagnosis: Calculous cholecystitis Postoperative Diagnosis: Same, choledocholithiasis Procedure: Laparoscopic cholecystectomy with intraoperative cholangiogram Surgeons: Rey Gang Punch Operator: LINDSAY Bertrand Anesthesia: Gen. Estimated Blood Loss: 20 mL Specimen: Gallbladder to pathology Drains: 19 Turkish MARJORIE drain right upper quadrant Complications: None Indications: The patient is a 41-year-old female was been having recurrent upper abdominal pain. Her evaluation has shown gallstones with elevated liver tests worrisome for choledocholithiasis. Surgical treatment was offered by means of a laparoscopic cholecystectomy. The risks of surgery were discussed which include bleeding, infection, bile duct injury, bile leak, pain, the potential for additional surgeries or procedures. The patient understands and would like to proceed. Description: The patient was taken to the operating room and laid supine on the operating table. General anesthesia was performed. The abdomen was prepped with ChloraPrep and draped in a standard surgical fashion. A small incision was made in the right abdomen through which a visualized 5 mm trocar was inserted. A pneumoperitoneum was created and the laparoscope introduced. In the upper midabdomen a 12 mm trocar was inserted and in the right upper quadrant two 5 mm trochars were inserted. The gallbladder was tense and 50 cc of bilious fluid was aspirated providing decompression. The gallbladder was retracted cephalad. The cystic duct was dissected free from surrounding tissues. The cystic duct was markedly dilated. One clip was placed on the duct near the gallbladder junction. An opening was made in the duct revealing a sizable stone which was extracted. A cholangiocatheter placed within and secured with a clip. Using contrast dye and fluoroscopy an intraoperative cholangiogram was performed. This showed a filling defect with some degree of obstruction in the the distal common bile duct. 1 mg of glucagon was administered and several passes were made with a Davian catheter and attempts to retrieve the stone. These were unsuccessful. The clip and catheter were then withdrawn. Three clips were placed on the cystic duct and it was divided. The cystic artery was then identified, dissected free, doubly clipped and divided as well. The gallbladder was then mobilized away from the liver with cautery. The gallbladder was then placed in an endoscopic bag and extracted at the superior trocar site. The fascia there was closed with an 0 Vicryl suture and infiltrated with 0.5% marcaine. All blood and irrigation fluid was suctioned and hemostasis was good. The remaining ports were removed and the pneumoperitoneum was relieved. The skin incisions were closed using 4-0 Monocryl suture. Steri-Strips and dressings were then applied. The patient tolerated the procedure well and was sent to the recovery room in stable condition. At the end of the case all counts were correct. DANIEL NGUYEN MD Sep 16, 2021 14:21
[2021-09-16] MEDS: fentaNYL PF VIAL 100 MCG/2 ML VIAL IVP PRN ×2 (15:01→15:10)
[2021-09-16] MEDS: MORPHINE SULFATE 2 MG/ML INJ. IVP PRN ×2 (15:40→22:48)
[2021-09-17] MEDS: IV NORMAL SALINE 1000ML BAG 1,000 ML IV SCH ×2 (01:00→11:05)
--- NOTE | 2021-09-17 01:10 | EKG ---
[facility] [address] [place] [address] Test Date: 2021-09-16 Test Time: 00:57:48 Pat Name: MURALI SOLIS Department: Room: [facility] Gender: F Ironer Sock: : 1980 Requested By: CORY WALKER Order Number: [id number] Reading MD: Johnny Jackson MD Measurements Intervals [place] Rate: 69 P: 23 HI: 150 QRS: 38 QRSD: 78 T: 38 QT: 384 QTc: 413 Interpretive Statements SINUS RHYTHM Electronically Signed On 09-18-2021 10:16:25 PHARMACIST APPRENTICE by Johnny Jackson MD
[2021-09-17 03:00] VITALS: BP 124/74
[2021-09-17] MEDS: MORPHINE SULFATE 2 MG/ML INJ. IVP PRN ×2 (05:28→08:37)
[2021-09-17 07:00] VITALS: BP 169/98
[2021-09-17 07:28] LABS: BASO % 0 % (0-3); EOS % 1 % (0-3); HEMATOCRIT 38.1 % (36.0-47.0); HEMOGLOBIN 12.6 g/dL (12.0-15.5); LYMPH # 1.9 x10^3/uL (1.0-4.8); LYMPH % 27 % (24-48); MEAN CORPUSCULAR HEMOGLOBIN 29 pg (25-35); MEAN CORPUSCULAR HGB CONC 33 g/dL (31-37); MEAN CORPUSCULAR VOLUME 88 fL (79-100); MONO # 0.4 x10^3/uL (0.0-1.1); MONO % 6 % (0-9); NEUT # 4.5 x10^3/uL (1.8-7.7); NEUT % 66 % (31-73); PLATELET COUNT 231 x10^3/uL (140-400); RED BLOOD COUNT 4.34 x10^6/uL (3.50-5.40); RED CELL DISTRIBUTION WIDTH 13.3 % (11.5-14.5); WHITE BLOOD COUNT 6.9 x10^3/uL (4.0-11.0)
[2021-09-17 07:50] LABS: ALBUMIN 3.2 g/dL (3.4-5.0); CALCIUM 8.2 mg/dL (8.5-10.1); CREATININE 0.7 mg/dL (0.6-1.0); GFR 92.7; POTASSIUM 3.7 mmol/L (3.5-5.1); TOTAL BILIRUBIN 1.2 mg/dL (0.2-1.0); TOTAL PROTEIN 6.5 g/dL (6.4-8.2)
--- NOTE | 2021-09-17 08:23 | PDOC ---
SURGICAL PROGRESS NOTE DATE: 09/17/21 TIME: 08:21 Subjective on the phone during visit RUQ pain Vital Signs Vital Signs Date Time Temp Pulse Resp B/P (MAP) Pulse Ox O2 Delivery O2 Flow Rate FiO2 09/17/21 07:00 98.5 72 18 169/98 (121) 96 Room Air 98.5 09/16/21 22:48 6.0 I&O Intake and Output 09/17/21 07:00 Intake Total 1250 ml Output Total 20 ml Balance 1230 ml Intake Oral 0 ml IV Total 1250 ml Output Estimated Blood Loss 20 ml # Voids 2 General: Alert, Cooperative Abdomen: Soft, Other (floridalma serosang ) Labs Laboratory Tests Test 09/16/21 01:30 09/16/21 04:54 09/16/21 04:58 09/16/21 05:40 White Blood Count 4.3 x10^3/uL (4.0-11.0) Red Blood Count 4.21 x10^6/uL (3.50-5.40) Hemoglobin 12.5 g/dL (12.0-15.5) Hematocrit 36.6 % (36.0-47.0) Mean Corpuscular Volume 87 fL (79-100) Mean Corpuscular Hemoglobin 30 pg (25-35) Mean Corpuscular Hemoglobin Concent 34 g/dL (31-37) Red Cell Distribution Width 13.0 % (11.5-14.5) Platelet Count 232 x10^3/uL (140-400) Neutrophils (%) (Auto) 53 % (31-73) Lymphocytes (%) (Auto) 33 % (24-48) Monocytes (%) (Auto) 8 % (0-9) Eosinophils (%) (Auto) 5 % (0-3) Basophils (%) (Auto) 1 % (0-3) Neutrophils # (Auto) 2.3 x10^3/uL (1.8-7.7) Lymphocytes # (Auto) 1.4 x10^3/uL (1.0-4.8) Monocytes # (Auto) 0.3 x10^3/uL (0.0-1.1) Eosinophils # (Auto) 0.2 x10^3/uL (0.0-0.7) Basophils # (Auto) 0.0 x10^3/uL (0.0-0.2) Sodium Level 141 mmol/L (136-145) Potassium Level 3.7 mmol/L (3.5-5.1) Chloride Level 104 mmol/L (98-107) Carbon Dioxide Level 25 mmol/L (21-32) Anion Gap 12 (6-14) Blood Urea Nitrogen 8 mg/dL (7-20) Creatinine 0.9 mg/dL (0.6-1.0) Estimated GFR (Cockcroft-Gault) 69.3 BUN/Creatinine Ratio 9 (6-20) Glucose Level 109 mg/dL (70-99) Calcium Level 8.6 mg/dL (8.5-10.1) Total Bilirubin 2.6 mg/dL (0.2-1.0) Direct Bilirubin 1.8 mg/dL (0.0-0.2) Gamma Glutamyl Transpeptidase 280 U/L (5-55) Aspartate Amino Transf (AST/SGOT) 850 U/L (15-37) Alanine Aminotransferase (ALT/SGPT) 888 U/L (14-59) Alkaline Phosphatase 124 U/L (46-116) Troponin I High Sensitivity 6 ng/L (4-50) Total Protein 7.0 g/dL (6.4-8.2) Albumin 3.8 g/dL (3.4-5.0) Albumin/Globulin Ratio 1.2 (1.0-1.7) Lipase 80 U/L (73-393) Hepatitis A IgM Antibody Nonreactive (Nonreactive) Hepatitis B Surface Antigen Nonreactive (Nonreactive) Hepatitis B Core IgM Antibody Nonreactive (Nonreactive) Hepatitis C IgG Antibody Nonreactive (Nonreactive) Urine Collection Type Unknown Urine Color Yellow Urine Clarity Hazy Urine pH 7.5 (<5.0-8.0) Urine Specific [place] 1.015 (1.000-1.030) Urine Protein Negative mg/dL (NEG-TRACE) Urine Glucose (UA) Negative mg/dL (NEG) Urine Ketones (Stick) 15 mg/dL (NEG) Urine Blood Moderate (NEG) Urine Nitrite Negative (NEG) Urine Bilirubin Small (NEG) Urine Urobilinogen Dipstick >=8.0 mg/dL (0.2 mg/dL) Urine Leukocyte Esterase Negative (NEG) Urine RBC 6-10 /HPF (0-2) Urine WBC Rare /HPF (0-4) Urine Squamous Epithelial Cells Few /LPF Urine Bacteria 0 /HPF (0-FEW) Urine Mucus Slight /LPF Bedside Urine HCG, Qualitative Hcg negative (Negative) Coronavirus (COVID-19)(PCR) Not detected (NOT DETECTD) Influenza Type A Antigen Negative (NEGATIVE) Influenza Type B Antigen Negative (NEGATIVE) SARS-CoV-2 Antigen (Rapid) Negative (NEGATIVE) Test 09/17/21 06:15 White Blood Count 6.9 x10^3/uL (4.0-11.0) Red Blood Count 4.34 x10^6/uL (3.50-5.40) Hemoglobin 12.6 g/dL (12.0-15.5) Hematocrit 38.1 % (36.0-47.0) Mean Corpuscular Volume 88 fL (79-100) Mean Corpuscular Hemoglobin 29 pg (25-35) Mean Corpuscular Hemoglobin Concent 33 g/dL (31-37) Red Cell Distribution Width 13.3 % (11.5-14.5) Platelet Count 231 x10^3/uL (140-400) Neutrophils (%) (Auto) 66 % (31-73) Lymphocytes (%) (Auto) 27 % (24-48) Monocytes (%) (Auto) 6 % (0-9) Eosinophils (%) (Auto) 1 % (0-3) Basophils (%) (Auto) 0 % (0-3) Neutrophils # (Auto) 4.5 x10^3/uL (1.8-7.7) Lymphocytes # (Auto) 1.9 x10^3/uL (1.0-4.8) Monocytes # (Auto) 0.4 x10^3/uL (0.0-1.1) Eosinophils # (Auto) 0.0 x10^3/uL (0.0-0.7) Basophils # (Auto) 0.0 x10^3/uL (0.0-0.2) Sodium Level 141 mmol/L (136-145) Potassium Level 3.7 mmol/L (3.5-5.1) Chloride Level 107 mmol/L (98-107) Carbon Dioxide Level 22 mmol/L (21-32) Anion Gap 12 (6-14) Blood Urea Nitrogen 5 mg/dL (7-20) Creatinine 0.7 mg/dL (0.6-1.0) Estimated GFR (Cockcroft-Gault) 92.7 BUN/Creatinine Ratio 7 (6-20) Glucose Level 88 mg/dL (70-99) Calcium Level 8.2 mg/dL (8.5-10.1) Total Bilirubin 1.2 mg/dL (0.2-1.0) Aspartate Amino Transf (AST/SGOT) 264 U/L (15-37) Alanine Aminotransferase (ALT/SGPT) 613 U/L (14-59) Alkaline Phosphatase 127 U/L (46-116) Total Protein 6.5 g/dL (6.4-8.2) Albumin 3.2 g/dL (3.4-5.0) Albumin/Globulin Ratio 1.0 (1.0-1.7) Laboratory Tests Test 09/17/21 06:15 White Blood Count 6.9 x10^3/uL (4.0-11.0) Red Blood Count 4.34 x10^6/uL (3.50-5.40) Hemoglobin 12.6 g/dL (12.0-15.5) Hematocrit 38.1 % (36.0-47.0) Mean Corpuscular Volume 88 fL (79-100) Mean Corpuscular Hemoglobin 29 pg (25-35) Mean Corpuscular Hemoglobin Concent 33 g/dL (31-37) Red Cell Distribution Width 13.3 % (11.5-14.5) Platelet Count 231 x10^3/uL (140-400) Neutrophils (%) (Auto) 66 % (31-73) Lymphocytes (%) (Auto) 27 % (24-48) Monocytes (%) (Auto) 6 % (0-9) Eosinophils (%) (Auto) 1 % (0-3) Basophils (%) (Auto) 0 % (0-3) Neutrophils # (Auto) 4.5 x10^3/uL (1.8-7.7) Lymphocytes # (Auto) 1.9 x10^3/uL (1.0-4.8) Monocytes # (Auto) 0.4 x10^3/uL (0.0-1.1) Eosinophils # (Auto) 0.0 x10^3/uL (0.0-0.7) Basophils # (Auto) 0.0 x10^3/uL (0.0-0.2) Sodium Level 141 mmol/L (136-145) Potassium Level 3.7 mmol/L (3.5-5.1) Chloride Level 107 mmol/L (98-107) Carbon Dioxide Level 22 mmol/L (21-32) Anion Gap 12 (6-14) Blood Urea Nitrogen 5 mg/dL (7-20) Creatinine 0.7 mg/dL (0.6-1.0) Estimated GFR (Cockcroft-Gault) 92.7 BUN/Creatinine Ratio 7 (6-20) Glucose Level 88 mg/dL (70-99) Calcium Level 8.2 mg/dL (8.5-10.1) Total Bilirubin 1.2 mg/dL (0.2-1.0) Aspartate Amino Transf (AST/SGOT) 264 U/L (15-37) Alanine Aminotransferase (ALT/SGPT) 613 U/L (14-59) Alkaline Phosphatase 127 U/L (46-116) Total Protein 6.5 g/dL (6.4-8.2) Albumin 3.2 g/dL (3.4-5.0) Albumin/Globulin Ratio 1.0 (1.0-1.7) Problem List Problems Medical Problems: (1) Acute cholangitis Status: Acute Assessment/Plan s/p yousuf cbd stone on IOC--GI consult pending Justicifation of Admission Dx: Justifications for Admission: Justification of Admission Dx: Yes Comments: cholecystitis GIOVANI FINE APRN Sep 17, 2021 08:23
[2021-09-17] MEDS: ENOXAPARIN 40 MG/0.4 ML SYRINGE. SQ SCH (08:37)
--- NOTE | 2021-09-17 10:11 | PDOC ---
[employer] PROGRESS NOTE Date of Service DOS: DATE: 09/17/21 TIME: 10:10 Chief Complaint Chief Complaint Assessment/Plan Acute abdominal pain secondary to cholelithiasis status post lap yousuf 09/17/2021 Choledocholithiasis, pending ERCP Transaminitis suggestive of obstructive biliary disease Admit to hospitalist service for further management General surgery consult Continue IV fluids IV pain management Lovenox for DVT prophylaxis Protonix GI prophylaxis NPO CODE STATUS full Discussed with RN and SW Disposition inpatient management as above DPOA: History of Present Illness History of Present Illness 41 year old female coming in for epigastric pain that radiates to her back. Patient states is been present for about 2 days. Says it comes and goes and is worsening foods, especially are fatty or greasy. Patient says she is sometimes vomiting from the pain. Denies any change in bowel movements or diarrhea. 09/17/2021 No acute events overnight. Patient seen examined bedside. Pain currently is 7 out of 10 while in bed. Appropriate from surgical incisions. Denies any nausea vomiting. Filling defect seen on IOC. GI consulted and pending evaluation. Likely will need ERCP before discharge. LFTs are trending downwards. Patient's chart, labs, images were reviewed and discussed with RN Vitals/I&O Vitals/I&O: Vital Signs Date Time Temp Pulse Resp B/P (MAP) Pulse Ox O2 Delivery O2 Flow Rate FiO2 09/17/21 08:37 96 Room Air 6.0 09/17/21 07:00 98.5 72 18 169/98 (121) 98.5 I & O 09/16/21 09/16/21 09/17/21 15:00 23:00 07:00 Intake Total 1100 ml 150 ml Output Total 20 ml Balance 1080 ml 150 ml Physical Exam General: Alert, Cooperative Heart: Regular rate, Normal S1, Normal S2 Abdomen: Soft, Other (floridalma serosang ) Extremities: No clubbing, No cyanosis Skin: No rashes, No breakdown Labs Labs: Laboratory Tests Test 09/17/21 06:15 White Blood Count 6.9 x10^3/uL (4.0-11.0) Red Blood Count 4.34 x10^6/uL (3.50-5.40) Hemoglobin 12.6 g/dL (12.0-15.5) Hematocrit 38.1 % (36.0-47.0) Mean Corpuscular Volume 88 fL (79-100) Mean Corpuscular Hemoglobin 29 pg (25-35) Mean Corpuscular Hemoglobin Concent 33 g/dL (31-37) Red Cell Distribution Width 13.3 % (11.5-14.5) Platelet Count 231 x10^3/uL (140-400) Neutrophils (%) (Auto) 66 % (31-73) Lymphocytes (%) (Auto) 27 % (24-48) Monocytes (%) (Auto) 6 % (0-9) Eosinophils (%) (Auto) 1 % (0-3) Basophils (%) (Auto) 0 % (0-3) Neutrophils # (Auto) 4.5 x10^3/uL (1.8-7.7) Lymphocytes # (Auto) 1.9 x10^3/uL (1.0-4.8) Monocytes # (Auto) 0.4 x10^3/uL (0.0-1.1) Eosinophils # (Auto) 0.0 x10^3/uL (0.0-0.7) Basophils # (Auto) 0.0 x10^3/uL (0.0-0.2) Sodium Level 141 mmol/L (136-145) Potassium Level 3.7 mmol/L (3.5-5.1) Chloride Level 107 mmol/L (98-107) Carbon Dioxide Level 22 mmol/L (21-32) Anion Gap 12 (6-14) Blood Urea Nitrogen 5 mg/dL (7-20) Creatinine 0.7 mg/dL (0.6-1.0) Estimated GFR (Cockcroft-Gault) 92.7 BUN/Creatinine Ratio 7 (6-20) Glucose Level 88 mg/dL (70-99) Calcium Level 8.2 mg/dL (8.5-10.1) Total Bilirubin 1.2 mg/dL (0.2-1.0) Aspartate Amino Transf (AST/SGOT) 264 U/L (15-37) Alanine Aminotransferase (ALT/SGPT) 613 U/L (14-59) Alkaline Phosphatase 127 U/L (46-116) Total Protein 6.5 g/dL (6.4-8.2) Albumin 3.2 g/dL (3.4-5.0) Albumin/Globulin Ratio 1.0 (1.0-1.7) Assessment and Plan Assessmemt and Plan Problems Medical Problems: (1) Acute cholangitis Status: Acute Comment Review of Relevant I have reviewed the following items pablo (where applicable) has been applied. Medications: Current Medications Medications (Trade) Dose Ordered Sig/Tung Route PRN Reason Start Time Stop Time Status Last Admin Dose Admin Bupivacaine HCl/ Epinephrine Bitart (Sensorcain-Epi 0.5% Kit) 30 ml STK-MED ONCE .ROUTE 09/16/21 12:19 09/16/21 12:19 DC 09/16/21 13:22 Iohexol (Omnipaque 300 Mg/ml) 50 ml STK-MED ONCE .ROUTE 09/16/21 12:19 09/16/21 12:19 DC 09/16/21 13:35 Fentanyl Citrate (Fentanyl 2ml Vial) 50 mcg PRN Q5MIN PRN IVP MODERATE PAIN 4-6 09/16/21 12:45 09/16/21 20:00 DC 09/16/21 15:10 Ringer's Solution 1,000 ml @ 30 mls/hr Q24H IV 09/16/21 12:45 09/17/21 00:44 DC 09/16/21 14:20 Justifications for Admission Other Justification Acute abdominal pain due to cholelithiasis SHILO COFFEY MD Sep 17, 2021 10:11
[2021-09-17 11:00] VITALS: BP 162/93
[2021-09-17] MEDS: oxyCODONE/APAP 5/325 1 TAB TABLET PO PRN ×3 (11:05→22:33)
--- NOTE | 2021-09-17 12:23 | PDOC2 ---
GI CONSULT Reason For Consult: choledocholithiasis HPI: HPI: 41 year old female coming in for epigastric pain s/p lap yousuf for cholecystitis with choledocholithiasis suggested on abd son and confirmed on IOC. LFTs remain elevated but have improved since L/C. She still has abd pain PMH: PMH: Past Medical/Surgical History: PMH/PSH: Past Surgical History: BREAST AUG, LIPO Allergies: Allergies: Coded Allergies: No Known Drug Allergies (Unverified , 09/16/21) Family History: Family History: Reviewed with no relative findings in the chart Social History: Social History: Denies alcohol, tobacco or drug abuse Current Medications: Current Medications Current Medications Ondansetron HCl (Zofran) 4 mg 1X ONCE IVP Last administered on 09/16/21at 01:55; Start 09/16/21 at 01:30; Stop 09/16/21 at 01:31; Status DC Fentanyl Citrate (Fentanyl 2ml Vial) 75 mcg 1X ONCE IVP Last administered on 09/16/21at 01:58; Start 09/16/21 at 01:30; Stop 09/16/21 at 01:31; Status DC Iohexol (Omnipaque 300 Mg/ml) 75 ml 1X ONCE IV Last administered on 09/16/21at 03:30; Start 09/16/21 at 02:45; Stop 09/16/21 at 02:46; Status DC Info (CONTRAST GIVEN -- Rx MONITORING) 1 each PRN DAILY PRN MC SEE COMMENTS; Start 09/16/21 at 02:45; Stop 09/18/21 at 02:44 Ondansetron HCl (Zofran) 4 mg PRN Q8HRS PRN IVP NAUSEA/VOMITING; Start 09/16/21 at 05:00; Stop 09/17/21 at 04:59 Morphine Sulfate (Morphine Sulfate) 4 mg PRN Q2HR PRN IVP PAIN Last administered on 09/16/21at 06:09; Start 09/16/21 at 05:00; Stop 09/17/21 at 04:59 Sodium Chloride 1,000 ml @ 100 mls/hr Q10H IV Last administered on 09/16/21at 05:56; Start 09/16/21 at 05:00; Stop 09/17/21 at 04:59 Piperacillin Sod/ Tazobactam Sod 3.375 gm/Sodium Chloride 50 ml @ 100 mls/hr 1X ONCE IV Last administered on 09/16/21at 06:08; Start 09/16/21 at 05:00; Stop 09/16/21 at 05:29; Status DC Cefazolin Sodium/ Dextrose 50 ml @ 100 mls/hr 1X PREOP PRN IV PRIOR TO PROCEDURE; Start 09/16/21 at 09:00; Stop 09/17/21 at 08:59 Active Scripts Active Reported Omeprazole-Bicarb 20-1,100 Cap (Omeprazole/Sodium Bicarbonate) 1 Each Capsule 1 Each PO HS PRN Social History: Smoke: No ALCOHOL: none Drugs: None ROS: GENERAL: Denies weakness SKIN: No bruising, hair changes or rashes. EYES: No blurred, double or loss of vision. NOSE AND THROAT: No history of nosebleeds, hoarseness or sore throat. HEART: No history of palpitations, chest pain or shortness of breath on exertion. LUNGS: Denies cough, hemoptysis, wheezing or shortness of breath. GASTROINTESTINAL: Denies changes in appetite, nausea, vomiting, diarrhea or constipation. GENITOURINARY: No history of frequency, urgency, hesitancy or nocturia. NEUROLOGIC: Denies history of numbness, tingling, or tremor. PSYCHIATRIC: No history of panic, anxiety or depression. ENDOCRINE: No history of heat or cold intolerance, polyuria or polydipsia. EXTREMITIES: Denies joint pain, pain on walking or stiffness. VItals: Vitals: Vital Signs Date Time Temp Pulse Resp B/P (MAP) Pulse Ox O2 Delivery O2 Flow Rate FiO2 09/17/21 11:46 96 Room Air 6.0 09/17/21 11:00 98.9 74 18 162/93 (116) 98.9 Labs: Labs: Laboratory Tests Test 09/17/21 06:15 White Blood Count 6.9 x10^3/uL (4.0-11.0) Red Blood Count 4.34 x10^6/uL (3.50-5.40) Hemoglobin 12.6 g/dL (12.0-15.5) Hematocrit 38.1 % (36.0-47.0) Mean Corpuscular Volume 88 fL (79-100) Mean Corpuscular Hemoglobin 29 pg (25-35) Mean Corpuscular Hemoglobin Concent 33 g/dL (31-37) Red Cell Distribution Width 13.3 % (11.5-14.5) Platelet Count 231 x10^3/uL (140-400) Neutrophils (%) (Auto) 66 % (31-73) Lymphocytes (%) (Auto) 27 % (24-48) Monocytes (%) (Auto) 6 % (0-9) Eosinophils (%) (Auto) 1 % (0-3) Basophils (%) (Auto) 0 % (0-3) Neutrophils # (Auto) 4.5 x10^3/uL (1.8-7.7) Lymphocytes # (Auto) 1.9 x10^3/uL (1.0-4.8) Monocytes # (Auto) 0.4 x10^3/uL (0.0-1.1) Eosinophils # (Auto) 0.0 x10^3/uL (0.0-0.7) Basophils # (Auto) 0.0 x10^3/uL (0.0-0.2) Sodium Level 141 mmol/L (136-145) Potassium Level 3.7 mmol/L (3.5-5.1) Chloride Level 107 mmol/L (98-107) Carbon Dioxide Level 22 mmol/L (21-32) Anion Gap 12 (6-14) Blood Urea Nitrogen 5 mg/dL (7-20) Creatinine 0.7 mg/dL (0.6-1.0) Estimated GFR (Cockcroft-Gault) 92.7 BUN/Creatinine Ratio 7 (6-20) Glucose Level 88 mg/dL (70-99) Calcium Level 8.2 mg/dL (8.5-10.1) Total Bilirubin 1.2 mg/dL (0.2-1.0) Aspartate Amino Transf (AST/SGOT) 264 U/L (15-37) Alanine Aminotransferase (ALT/SGPT) 613 U/L (14-59) Alkaline Phosphatase 127 U/L (46-116) Total Protein 6.5 g/dL (6.4-8.2) Albumin 3.2 g/dL (3.4-5.0) Albumin/Globulin Ratio 1.0 (1.0-1.7) Imaging: Imaging: INDICATION: Right upper quadrant pain TECHNIQUE: Lynch scale and color Doppler ultrasound images of the right upper quadrant were obtained. COMPARISON: None. FINDINGS: Liver: The liver is normal in size measuring 13 cm in length. Mildly increased hepatic echogenicity. No focal liver lesion. Gallbladder: The gallbladder is normal in caliber. There is cholelithiasis and sludge in the gallbladder. No gallbladder wall thickening. Bile ducts: The common bile duct is normal measuring 4 mm. No intrahepatic biliary duct dilatation. Right kidney: The right kidney measures 11.5 x 3.8 x 3.8 cm. Normal cortical thickness and echogenicity. No hydronephrosis. Other: IVC is patent at the level of the liver. The pancreas is not well visualized. IMPRESSION: Cholelithiasis and sludge in the gallbladder. No evidence of acute c holecystitis. Electronically signed by: Scarlet Bruno MD (09/16/2021 3:25 AM) [facility] PE: GEN: NAD HEENT: Atraumatic, PERRLA LUNGS: CTAB HEART: RRR, no murmurs ABD: NABS, Soft, TTP mild. Right MARJORIE with serosanguinus fluid EXTREMITY: No edema SKIN: No rashes, no jaundice NEURO/PSYCH: A & O 3 A/P: A/P: A/P 1) Choledocholithiasis- have discussed ERCP and explained pancreatitis risks. Defer timing to Dr Louis 2) Cholecystitis- s/p L/C with positive IOC 3) elevated LFTs- check hepatitis serologies DARRYN CONNORS MD Sep 17, 2021 12:23
[2021-09-17 15:00] VITALS: BP 154/87
[2021-09-17 19:00] VITALS: BP 161/92
[2021-09-17 23:00] VITALS: BP 179/94
[2021-09-18] MEDS: IV NORMAL SALINE 1000ML BAG 1,000 ML IV SCH ×3 (01:15→11:15)
[2021-09-18 03:00] VITALS: BP 149/85
[2021-09-18] MEDS: oxyCODONE/APAP 5/325 1 TAB TABLET PO PRN (06:43)
[2021-09-18 07:15] VITALS: BP 175/96
[2021-09-18 07:40] LABS: BASO % 0 % (0-3); EOS # 0.1 x10^3/uL (0.0-0.7); EOS % 2 % (0-3); HEMATOCRIT 37.3 % (36.0-47.0); HEMOGLOBIN 12.3 g/dL (12.0-15.5); LYMPH # 1.6 x10^3/uL (1.0-4.8); LYMPH % 37 % (24-48); MEAN CORPUSCULAR HEMOGLOBIN 29 pg (25-35); MEAN CORPUSCULAR HGB CONC 33 g/dL (31-37); MEAN CORPUSCULAR VOLUME 88 fL (79-100); MONO # 0.3 x10^3/uL (0.0-1.1); MONO % 7 % (0-9); NEUT # 2.3 x10^3/uL (1.8-7.7); NEUT % 54 % (31-73); PLATELET COUNT 229 x10^3/uL (140-400); RED BLOOD COUNT 4.25 x10^6/uL (3.50-5.40); RED CELL DISTRIBUTION WIDTH 13.1 % (11.5-14.5); WHITE BLOOD COUNT 4.4 x10^3/uL (4.0-11.0)
[2021-09-18] MEDS: ENOXAPARIN 40 MG/0.4 ML SYRINGE. SQ SCH (08:20)
--- NOTE | 2021-09-18 08:44 | PDOC ---
SURGICAL PROGRESS NOTE DATE: 09/18/21 TIME: 08:43 Subjective Patient up walking in room states she is feeling well minimal pain Vital Signs Vital Signs Date Time Temp Pulse Resp B/P (MAP) Pulse Ox O2 Delivery O2 Flow Rate FiO2 09/18/21 07:15 98.6 60 18 175/96 (122) 98 Room Air 98.6 09/18/21 06:43 6.0 I&O Intake and Output 09/18/21 07:00 Output Total 25 ml Balance -25 ml Output Drainage Total 25 ml # Voids 3 PATIENT HAS A CASTILLO: No General: Alert, Oriented X3, Cooperative, mild distress Abdomen: Normal bowel sounds, Soft, Other (Mild incisional tenderness wounds clean dry and intact MARJORIE drain with serosanguineous output nonbilious) Labs Laboratory Tests Test 09/17/21 06:15 09/18/21 06:51 White Blood Count 6.9 x10^3/uL (4.0-11.0) 4.4 x10^3/uL (4.0-11.0) Red Blood Count 4.34 x10^6/uL (3.50-5.40) 4.25 x10^6/uL (3.50-5.40) Hemoglobin 12.6 g/dL (12.0-15.5) 12.3 g/dL (12.0-15.5) Hematocrit 38.1 % (36.0-47.0) 37.3 % (36.0-47.0) Mean Corpuscular Volume 88 fL (79-100) 88 fL (79-100) Mean Corpuscular Hemoglobin 29 pg (25-35) 29 pg (25-35) Mean Corpuscular Hemoglobin Concent 33 g/dL (31-37) 33 g/dL (31-37) Red Cell Distribution Width 13.3 % (11.5-14.5) 13.1 % (11.5-14.5) Platelet Count 231 x10^3/uL (140-400) 229 x10^3/uL (140-400) Neutrophils (%) (Auto) 66 % (31-73) 54 % (31-73) Lymphocytes (%) (Auto) 27 % (24-48) 37 % (24-48) Monocytes (%) (Auto) 6 % (0-9) 7 % (0-9) Eosinophils (%) (Auto) 1 % (0-3) 2 % (0-3) Basophils (%) (Auto) 0 % (0-3) 0 % (0-3) Neutrophils # (Auto) 4.5 x10^3/uL (1.8-7.7) 2.3 x10^3/uL (1.8-7.7) Lymphocytes # (Auto) 1.9 x10^3/uL (1.0-4.8) 1.6 x10^3/uL (1.0-4.8) Monocytes # (Auto) 0.4 x10^3/uL (0.0-1.1) 0.3 x10^3/uL (0.0-1.1) Eosinophils # (Auto) 0.0 x10^3/uL (0.0-0.7) 0.1 x10^3/uL (0.0-0.7) Basophils # (Auto) 0.0 x10^3/uL (0.0-0.2) 0.0 x10^3/uL (0.0-0.2) Sodium Level 141 mmol/L (136-145) 141 mmol/L (136-145) Potassium Level 3.7 mmol/L (3.5-5.1) 3.5 mmol/L (3.5-5.1) Chloride Level 107 mmol/L (98-107) 106 mmol/L (98-107) Carbon Dioxide Level 22 mmol/L (21-32) 26 mmol/L (21-32) Anion Gap 12 (6-14) 9 (6-14) Blood Urea Nitrogen 5 mg/dL (7-20) 4 mg/dL (7-20) Creatinine 0.7 mg/dL (0.6-1.0) 0.7 mg/dL (0.6-1.0) Estimated GFR (Cockcroft-Gault) 92.7 92.7 BUN/Creatinine Ratio 7 (6-20) Glucose Level 88 mg/dL (70-99) 95 mg/dL (70-99) Calcium Level 8.2 mg/dL (8.5-10.1) 8.4 mg/dL (8.5-10.1) Total Bilirubin 1.2 mg/dL (0.2-1.0) Aspartate Amino Transf (AST/SGOT) 264 U/L (15-37) Alanine Aminotransferase (ALT/SGPT) 613 U/L (14-59) Alkaline Phosphatase 127 U/L (46-116) Total Protein 6.5 g/dL (6.4-8.2) Albumin 3.2 g/dL (3.4-5.0) Albumin/Globulin Ratio 1.0 (1.0-1.7) Magnesium Level 1.6 mg/dL (1.8-2.4) Laboratory Tests Test 09/18/21 06:51 White Blood Count 4.4 x10^3/uL (4.0-11.0) Red Blood Count 4.25 x10^6/uL (3.50-5.40) Hemoglobin 12.3 g/dL (12.0-15.5) Hematocrit 37.3 % (36.0-47.0) Mean Corpuscular Volume 88 fL (79-100) Mean Corpuscular Hemoglobin 29 pg (25-35) Mean Corpuscular Hemoglobin Concent 33 g/dL (31-37) Red Cell Distribution Width 13.1 % (11.5-14.5) Platelet Count 229 x10^3/uL (140-400) Neutrophils (%) (Auto) 54 % (31-73) Lymphocytes (%) (Auto) 37 % (24-48) Monocytes (%) (Auto) 7 % (0-9) Eosinophils (%) (Auto) 2 % (0-3) Basophils (%) (Auto) 0 % (0-3) Neutrophils # (Auto) 2.3 x10^3/uL (1.8-7.7) Lymphocytes # (Auto) 1.6 x10^3/uL (1.0-4.8) Monocytes # (Auto) 0.3 x10^3/uL (0.0-1.1) Eosinophils # (Auto) 0.1 x10^3/uL (0.0-0.7) Basophils # (Auto) 0.0 x10^3/uL (0.0-0.2) Sodium Level 141 mmol/L (136-145) Potassium Level 3.5 mmol/L (3.5-5.1) Chloride Level 106 mmol/L (98-107) Carbon Dioxide Level 26 mmol/L (21-32) Anion Gap 9 (6-14) Blood Urea Nitrogen 4 mg/dL (7-20) Creatinine 0.7 mg/dL (0.6-1.0) Estimated GFR (Cockcroft-Gault) 92.7 Glucose Level 95 mg/dL (70-99) Calcium Level 8.4 mg/dL (8.5-10.1) Magnesium Level 1.6 mg/dL (1.8-2.4) Problem List Problems Medical Problems: (1) Acute cholangitis Status: Acute Assessment/Plan Status post laparoscopic cholecystectomy. Choledocholithiasis Dr. Menjivar to see with potential ERCP plan Justicifation of Admission Dx: Justifications for Admission: Justification of Admission Dx: Yes WERO HEIN MD Sep 18, 2021 08:44
[2021-09-18] MEDS ORDERED: MAGNESIUM SULFATE 2GM 50 ML IV ONE ×2 (09:00→12:00)
--- NOTE | 2021-09-18 09:41 | RAD ---
DG INTRAOPERATIVE CHOLANGIOGRAM Clinical Indication: Reason: GALLBLADDER SURGERY/0.27 MIN / Comparison: CT abdomen and pelvis with contrast, earlier same day. Findings: Intraoperative fluoroscopic guidance is provided by the technologist. Total fluoroscopy time 0.27 minutes. 2 fluoroscopic spot images. Contrast injection of cystic duct remnant. The extra hepatic duct is prominent. There is a meniscus s ign in the extrahepatic duct near the ampulla suspicious for a choledocholith. No definite spillage i nto the duodenum is seen. IMPRESSION: There is a probable choledocholith near the ampulla. Electronically signed by: Jose Hughes MD (09/18/2021 9:38 AM) [id number]
--- NOTE | 2021-09-18 10:10 | PDOC ---
Date of Service: DATE: 09/18/21 TIME: 10:07 Subjective: Subjective: Per-op pain was epigastric, now pain mostly RUQ. Objective: Vital Signs: Vital Signs Date Time Temp Pulse Resp B/P (MAP) Pulse Ox O2 Delivery O2 Flow Rate FiO2 09/18/21 08:00 Room Air 09/18/21 07:15 98.6 60 18 175/96 (122) 98 98.6 09/18/21 06:43 6.0 Labs: Laboratory Tests Test 09/18/21 06:51 White Blood Count 4.4 x10^3/uL Red Blood Count 4.25 x10^6/uL Hemoglobin 12.3 g/dL Hematocrit 37.3 % Mean Corpuscular Volume 88 fL Mean Corpuscular Hemoglobin 29 pg Mean Corpuscular Hemoglobin Concent 33 g/dL Red Cell Distribution Width 13.1 % Platelet Count 229 x10^3/uL Neutrophils (%) (Auto) 54 % Lymphocytes (%) (Auto) 37 % Monocytes (%) (Auto) 7 % Eosinophils (%) (Auto) 2 % Basophils (%) (Auto) 0 % Neutrophils # (Auto) 2.3 x10^3/uL Lymphocytes # (Auto) 1.6 x10^3/uL Monocytes # (Auto) 0.3 x10^3/uL Eosinophils # (Auto) 0.1 x10^3/uL Basophils # (Auto) 0.0 x10^3/uL Sodium Level 141 mmol/L Potassium Level 3.5 mmol/L Chloride Level 106 mmol/L Carbon Dioxide Level 26 mmol/L Anion Gap 9 Blood Urea Nitrogen 4 mg/dL Creatinine 0.7 mg/dL Estimated GFR (Cockcroft-Gault) 92.7 Glucose Level 95 mg/dL Calcium Level 8.4 mg/dL Magnesium Level 1.6 mg/dL Imaging: CT A/P IMPRESSION: 1. Cholelithiasis. The gallbladder is mildly distended and there is questionable slight wall thickening although this was not appreciated on ul trasound from earlier in the day. Correlate clinically for acute cholecystitis. 2. Dilated common bile duct measuring 8 mm with abrupt termination at the ampulla. Recommend MRCP to evaluate for obstructing sto Abd US IMPRESSION: Cholelithiasis and sludge in the gallbladder. No evidence of acute cholecystitis. ADDENDUM #1 Upon further review, the common bile duct is likely mildly dilated. This is better seen on subsequent CT abdomen pelvis from same day. Preoperative Diagnosis: Calculous cholecystitis Postoperative Diagnosis: Same, choledocholithiasis Procedure: Laparoscopic cholecystectomy with intraoperative cholangiogram IOC IMPRESSION: There is a probable choledocholith near the ampulla. PE: GEN: NAD LUNGS: CTAB HEART: RRR ABD: quiet, soft, mild MAXWELL discomfort, drain serosang NEURO/PSYCH: A & O 3 A/P: RUQ pain Abnormal LFTs - bili, AST, ALT better yesterday; Alk Phos stable S/p cholecystectomy, abnormal IOC -- D/w Dr. Louis who reviewed images - holding on ERCP for now, okay to advance diet - d/w Dr. Morales and pt. Justicifation of Admission Dx: Justifications for Admission: Justification of Admission Dx: Yes ROSE MARTIN Sep 18, 2021 10:10
[2021-09-18] MEDS ORDERED: OXYC1TAB15 PO (10:52)
[2021-09-18] MEDS ORDERED: SENN1TAB99 PO (10:52)
[2021-09-18 11:00] VITALS: BP 154/86
[2021-09-18] MEDS ORDERED: PANTOPRAZOLE 40 MG TABLET.DR. PO SCH (11:00)
--- NOTE | 2021-09-18 11:06 | DISCH ---
DISCHARGE INSTRUCTIONS Condition on Discharge Condition on Discharge: Stable Activity After Discharge Activity Instructions for Disc: Activity as tolerated Lifting Instructions after Dis: Do not lift >10 pounds Exercise Instruction after Dis: Walk 30 min, 5 x per week Driving Instructions after Dis: Do not drive today Weight Bearing Status after Di: No restrictions Diet after Discharge Diet after Discharge: Cardiac Follow-Up Follow up with: PCP within 2 weeks of discharge Follow Up With: General surgery within 2 weeks for postoperative wound check SHILO COFFEY MD Sep 18, 2021 11:06
[2021-09-18 11:25] LABS: ALBUMIN 3.3 g/dL (3.4-5.0); ALBUMIN/GLOBULIN RATIO 0.9 (1.0-1.7); CALCIUM 8.3 mg/dL (8.5-10.1); CREATININE 0.8 mg/dL (0.6-1.0); GFR 79.4; POTASSIUM 3.4 mmol/L (3.5-5.1); TOTAL BILIRUBIN 0.8 mg/dL (0.2-1.0); TOTAL PROTEIN 6.9 g/dL (6.4-8.2)
[2021-09-18] MEDS ORDERED: IBUPROFEN 400 MG TABLET. PO PRN (12:00)
[2021-09-18] MEDS ORDERED: POTASSIUM CHLORIDE 20 MEQ TABLET.ER. PO ONE (12:00)
--- NOTE | 2021-09-18 13:08 | NUR ---
SW following. Discussed with RN, pt from home with family, room air, clear liquid diet, COVID-19 negative. GI and Surgery following. Discharge order for home with self care pending labs and toleration of lunch. Med Assist following for self pay status. SW will continue to follow.
[2021-09-18] MEDS ORDERED: IBUP-1027 PO (13:56)
[2021-09-18] MEDS ORDERED: ACET325T21 PO (13:56)
--- NOTE | 2021-09-18 15:05 | NUR ---
Discharge Note: RICA SOLIS Discharge instructions and discharge home medications reviewed with Patient and a copy given. All questions have been answered and understanding verbalized. The following instructions and handouts were given: discharge instructions, new prescriptions, education and follow up appointment. Discontinued lines and drains: Peripheral IV discontinued intact, MARJORIE drain left intact- physician wants left in until follow up appointment in 2 weeks. Patient discharged to Home or Self Care with Spouse via Ambulated off unit by [employer].
[2021-09-19] MEDS ORDERED: HYDR-2769 PO (16:19)
[2021-09-19] MEDS ORDERED: ONDA4TAB12 PO (16:19)
== END 2021-09-18 15:10 | disposition home or self-care (01) | DRG 419 ==
LOC: ER 00:50 → 4 NORTH 04:00
PROVIDERS: ADMIT Internal Medicine; ATTEND Internal Medicine
PROC: BF101ZZ Fluoroscopy of Bile Ducts using Low Osmolar Contrast (ICD-10-PCS; 2021-09-16)
PROC: 0FT44ZZ Resection of Gallbladder, Percutaneous Endoscopic Approach (ICD-10-PCS; principal; 2021-09-16 13:00)
DX: K80.60 Calculus of gallbladder and bile duct with cholecystitis, unspecified, without obstruction (principal); Z20.822 Contact with and (suspected) exposure to COVID-19; Z79.899 Other long term (current) drug therapy
CPT/HCPCS: 36415; 74177; 74300; 76705; 80053; 81001; 81025; 82248; 82977; 83690; 83735; 84484; 85025; 86705; 86709; 86803; 87340; 87428; 93005; 96374; A4213; A4314; A4364; A4452; A4657; A4930; A6402; C1757; C1887; J0330; J0690; J0780; J1100; J1170; J1650; J1885; J2250; J2270; J2405; J2543; J2704; J2710; J3010; J3475; J3490; J7030; J7120; Q9967; U0003; 99285-25; G0378

== ENCOUNTER 2021-09-19 11:53 | Emergency (ER) | payer SELFPAY ==
[~2021-09-19] VITALS: Ht 170.2 cm; Wt 84.0 kg
[~2021-09-19 11:53] MED LIST: ACET325T21 PO; IBUP-1027 PO; OMEP1CAP32 PO; OXYC1TAB15 PO; SENN1TAB99 PO
[2021-09-19] MEDS ORDERED: MORPHINE SULFATE 10 MG/ML VIAL. IVP ONE (12:30)
[2021-09-19] MEDS ORDERED: IV NORMAL SALINE 1000ML BAG 1,000 ML IV ONE (12:30)
[2021-09-19] MEDS ORDERED: ONDANSETRON PF 4 MG/2 ML VIAL. IVP ONE (12:30)
[2021-09-19] MEDS ORDERED: IOHEXOL 300 MG/ML 100ML VIAL. IV ONE (12:45)
[2021-09-19 12:58] LABS: BASO % 1 % (0-3); EOS # 0.1 x10^3/uL (0.0-0.7); EOS % 2 % (0-3); HEMATOCRIT 39.7 % (36.0-47.0); HEMOGLOBIN 13.2 g/dL (12.0-15.5); LYMPH # 0.9 x10^3/uL (1.0-4.8); LYMPH % 17 % (24-48); MEAN CORPUSCULAR HEMOGLOBIN 29 pg (25-35); MEAN CORPUSCULAR HGB CONC 33 g/dL (31-37); MEAN CORPUSCULAR VOLUME 88 fL (79-100); MONO # 0.4 x10^3/uL (0.0-1.1); MONO % 7 % (0-9); NEUT # 3.9 x10^3/uL (1.8-7.7); NEUT % 74 % (31-73); PLATELET COUNT 275 x10^3/uL (140-400); RED BLOOD COUNT 4.51 x10^6/uL (3.50-5.40); RED CELL DISTRIBUTION WIDTH 13.3 % (11.5-14.5); WHITE BLOOD COUNT 5.2 x10^3/uL (4.0-11.0)
[2021-09-19 13:06] LABS: CALCIUM 9.3 mg/dL (8.5-10.1); CREATININE 0.7 mg/dL (0.6-1.0); GFR 92.7; POTASSIUM 3.8 mmol/L (3.5-5.1)
[2021-09-19 13:20] LABS: ALBUMIN 3.8 g/dL (3.4-5.0); TOTAL BILIRUBIN 2.5 mg/dL (0.2-1.0); TOTAL PROTEIN 7.7 g/dL (6.4-8.2)
[2021-09-19 14:13] LABS: BILIRUBIN,URINE NEGATIVE (NEG); CLARITY,URINE HAZY; COLOR,URINE YELLOW; NITRITE,URINE NEGATIVE (NEG); PROTEIN,URINE NEGATIVE (NEG-TRACE); UROBILINOGEN,URINE 0.2 mg/dL (0.2 mg/dL)
[2021-09-19 14:14] LABS: RBC,URINE >40 /HPF (0-2)
[2021-09-19 14:15] LABS: BACTERIA,URINE FEW /HPF (0-FEW)
--- NOTE | 2021-09-19 14:37 | RAD ---
PQRS Compliance Statement: One or more of the following individualized dose reduction techniques were utilized for this examinat ion: 1. Automated exposure control 2. Adjustment of the mA and/or kV according to patient size 3. Use of iterative reconstruction technique CT ABDOMEN+PELVIS W Clinical Indication: Reason: Epigastric pain, postop cholecystectomy on 09/16/2021 / Spl. Instructions: OMNI 300 75ML / History: Comparison: CT abdomen and pelvis of contrast September 16, 2021. Technique: Helical CT imaging of the abdomen and pelvis is performed after 75 cc of Omnipaque 300 IV contrast. Oral contrast also administered. Findings: There is moderate discoid atelectasis in the bilateral lower lobes. The cardiac size is normal. There are bilateral breast implants. There are changes of cholecystectomy. There is a surgical drain in the right upper quadrant, tip dee dee cent to the anterior liver. No fluid collection of the gallbladder fossa is seen. There are surgical clips. The liver, spleen, pancreas, adrenal glands, abdominal aorta, and kidneys are normal. No intrahepatic duct dilation is seen. No dilation of the extra hepatic duct is seen. The stomach is unremarkable. There is no small bowel obstruction. The appendix is normal. There is no colon wall thickening. There is subcutaneous induration of the abdominal wall, slightly increased from prior study, nonspeci fic. Uterus is unremarkable. The urinary bladder is normal. No pelvic free fluid is seen. Question osteitis pubis on the right. IMPRESSION: 1. No acute abdominal or pelvic abnormality. 2. Post cholecystectomy. Right upper quadrant surgical drain. 3. Moderate atelectasis in the bilateral lower lobes. Electronically signed by: Jose Hughes MD (09/19/2021 2:35 PM) [id number]
[2021-09-19 15:47] VITALS: BP 144/74
[2021-09-19] MEDS ORDERED: HYDR-2769 PO (16:19)
[2021-09-19] MEDS ORDERED: ONDA4TAB12 PO (16:19)
--- NOTE | 2021-09-19 16:21 | PHYS DOC ---
Past Medical History Past Surgical History: Cholecystectomy Additional Past Surgical Histo: BREAST AUG AND TUMMY MAICOCK Smoking Status: Never Smoker Alcohol Use: None General Adult EDM: Chief Complaint: POST-OP PROBLEM HPI: HPI: Patient is a 41-year-old female who presents to the emergency department complaining of 10 out of 10 epigastric pain that radiates through to her back. Patient reports she had a cholecystectomy here at [facility] on the 16 September 2021, states there was a stone that needed to be removed however the GI specialist elected not to do so sending her home instead. Patient reports wh en she went home she was still on medications from the hospital and her pain was controlled however when the pain medicines wore off, she was unable to get on top of her pain with the Tylenol and Motrin she was prescribed. Patient reports the same epigastric pain shooting through her back with the only difference being there is no burning sensation with this pain. Patient reports being on her menstrual cycle started 2 days ago with normal flow. Patient reports nausea without vomiting, denies chest pains, shortness of breath, fever or chills, diarrhea or constipation, denies other physical complaints or physical concerns. Review of Systems: Review of Systems: 14 body systems of review of systems have been reviewed. See HPI for pertinent positives and negative responses, otherwise all other systems are negative, nonpertinent or noncontributory. Constitutional: Negative except as outlined in HPI above. Skin: Negative except as outlined in HPI above. Eyes: Negative except as outlined in HPI above. HENT: Negative except as outlined in HPI above. Respiratory: Negative except as outlined in HPI above. Cardiovascular: Negative except as outlined in HPI above. GI: Negative except as outlined in HPI above. : Negative except as outlined in HPI above. Musculoskeletal: Negative except as outlined in HPI above. Integument: Negative except as outlined in HPI above. Neurologic: Negative except as outlined in HPI above. Endocrine: Negative except as outlined in HPI above. Lymphatic: Negative except as outlined in HPI above. Psychiatric: Negative except as outlined in HPI above. Heart Score: C/O Chest Pain: No Risk Factors: Risk Factors: DM, Current or recent (<one month) smoker, HTN, HLP, family history of CAD, obesity. Risk Scores: Score 0 - 3: 2.5% MACE over next 6 weeks - Discharge Home Score 4 - 6: 20.3% MACE over next 6 weeks - Admit for Clinical Observation Score 7 - 10: 72.7% MACE over next 6 weeks - Early Invasive Strategies Current Medications: Current Medications Medications (Trade) Dose Ordered Sig/Tung Start Time Stop Time Status Last Admin Dose Admin Iohexol (Omnipaque 300 Mg/ml) 75 ml 1X ONCE 09/19/21 12:45 09/19/21 12:46 DC Morphine Sulfate (Morphine Sulfate) 5 mg 1X ONCE 09/19/21 12:30 09/19/21 12:34 DC 09/19/21 12:59 5 MG Ondansetron HCl (Zofran) 4 mg 1X ONCE 09/19/21 12:30 09/19/21 12:34 DC 09/19/21 12:58 4 MG Sodium Chloride 1,000 ml @ 1,000 mls/hr 1X ONCE 09/19/21 12:30 09/19/21 13:29 DC 09/19/21 12:58 1,000 MLS/HR Allergies: Allergies: Allergies Coded Allergies Type Severity Reaction Last Updated Verified No Known Drug Allergies 09/16/21 No Physical Exam: PE: Constitutional: Well developed, well nourished, no acute distress, non-toxic appearance. 41-year-old female unable to find a position of comfort rather around in bed. HENT: Normocephalic, atraumatic. Eyes: Conjunctiva normal, no discharge. Neck: Normal range of motion, no stridor. Cardiovascular: No cyanosis appreciated, distal cap refill less than 2 seconds. Heart rate regular rate and rhythm. Lungs & Thorax: Patient is in no respiratory distress, lung sounds are clear to auscultation all lung jiménez. Abdomen: Patient has Zhou-Weinstein drain with serosanguineous fluid without biliary contents, surgical scars covered with Steri-Strips without drainage erythema or infectious process. Pain to palpation at epigastric area, there is no skin discoloration appreciated, the abdomen is soft. Skin: Warm, dry, no erythema, no rash. Back: No tenderness, no deformities. Extremities: No tenderness, no cyanosis, no clubbing, ROM intact, no edema. Neurologic: Alert and oriented X 3, normal motor function, normal sensory function, no focal deficits noted. Psychologic: Affect normal, judgement normal, mood normal. Current Patient Data: Labs: Laboratory Tests Test 3/8/22 12:46 09/19/21 13:50 White Blood Count 5.2 x10^3/uL (4.0-11.0) Red Blood Count 4.51 x10^6/uL (3.50-5.40) Hemoglobin 13.2 g/dL (12.0-15.5) Hematocrit 39.7 % (36.0-47.0) Mean Corpuscular Volume 88 fL (79-100) Mean Corpuscular Hemoglobin 29 pg (25-35) Mean Corpuscular Hemoglobin Concent 33 g/dL (31-37) Red Cell Distribution Width 13.3 % (11.5-14.5) Platelet Count 275 x10^3/uL (140-400) Neutrophils (%) (Auto) 74 % (31-73) H Lymphocytes (%) (Auto) 17 % (24-48) L Monocytes (%) (Auto) 7 % (0-9) Eosinophils (%) (Auto) 2 % (0-3) Basophils (%) (Auto) 1 % (0-3) Neutrophils # (Auto) 3.9 x10^3/uL (1.8-7.7) Lymphocytes # (Auto) 0.9 x10^3/uL (1.0-4.8) L Monocytes # (Auto) 0.4 x10^3/uL (0.0-1.1) Eosinophils # (Auto) 0.1 x10^3/uL (0.0-0.7) Basophils # (Auto) 0.0 x10^3/uL (0.0-0.2) Sodium Level 141 mmol/L (136-145) Potassium Level 3.8 mmol/L (3.5-5.1) Chloride Level 104 mmol/L (98-107) Carbon Dioxide Level 25 mmol/L (21-32) Anion Gap 12 (6-14) Blood Urea Nitrogen 6 mg/dL (7-20) L Creatinine 0.7 mg/dL (0.6-1.0) Estimated GFR (Cockcroft-Gault) 92.7 BUN/Creatinine Ratio 9 (6-20) Glucose Level 123 mg/dL (70-99) H Calcium Level 9.3 mg/dL (8.5-10.1) Magnesium Level 1.8 mg/dL (1.8-2.4) Total Bilirubin 2.5 mg/dL (0.2-1.0) H Aspartate Amino Transferase (AST) 188 U/L (15-37) H Alanine Aminotransferase (ALT) 447 U/L (14-59) H Alkaline Phosphatase 168 U/L (46-116) H Total Protein 7.7 g/dL (6.4-8.2) Albumin 3.8 g/dL (3.4-5.0) Albumin/Globulin Ratio 1.0 (1.0-1.7) Lipase 98 U/L (73-393) Urine Collection Type Unknown Urine Color Yellow Urine Clarity Hazy Urine pH 7.0 (<5.0-8.0) Urine Specific Alexander 1.015 (1.000-1.030) Urine Protein Negative mg/dL (NEG-TRACE) Urine Glucose (UA) Negative mg/dL (NEG) Urine Ketones (Stick) 40 mg/dL (NEG) Urine Blood Large (NEG) Urine Nitrite Negative (NEG) Urine Bilirubin Negative (NEG) Urine Urobilinogen Dipstick 0.2 mg/dL (0.2 mg/dL) Urine Leukocyte Esterase Small (NEG) Urine RBC >40 /HPF (0-2) Urine WBC 5-10 /HPF (0-4) Urine Squamous Epithelial Cells Occ /LPF Urine Bacteria Few /HPF (0-FEW) Laboratory Tests 09/19/21 12:46 Laboratory Tests 09/19/21 12:46 Vital Signs: Vital Signs Date Time Temp Pulse Resp B/P (MAP) Pulse Ox O2 Delivery O2 Flow Rate FiO2 09/19/21 12:59 18 98 09/19/21 12:02 97.6 67 208/106 (140) Room Air 97.6 EKG: EKG: [] Radiology/Procedures: Radiology/Procedures: STATUS: REG ER ORD. PHYSICIAN: SANDRA ANNE APRN REASON: Epigastric pain, postop cholecystectomy on 09/16/2021 PROCEDURE: CT ABD PELV W/ IV CONTRST ONLY PQRS Compliance Statement: One or more of the following individualized dose reduction techniques were utilized for this examination: 1. Automated exposure control 2. Adjustment of the mA and/or kV according to patient size 3. Use of iterative reconstruction technique CT ABDOMEN+PELVIS W Clinical Indication: Reason: Epigastric pain, postop cholecystectomy on 09/16/2021 / Spl. Instructions: OMNI 300 75ML / History: Comparison: CT abdomen and pelvis of contrast September 16, 2021. Technique: Helical CT imaging of the abdomen and pelvis is performed after 75 cc of Omnipaque 300 IV contrast. Oral contrast also administered. Findings: There is moderate discoid atelectasis in the bilateral lower lobes. The cardiac size is normal. There are bilateral breast implants. There are changes of cholecystectomy. There is a surgical drain in the right upper quadrant, tip adjacent to the anterior liver. No fluid collection of the gallbladder fossa is seen. There are surgical clips. The liver, spleen, pancreas, adrenal glands, abdominal aorta, and kidneys are normal. No intrahepatic duct dilation is seen. No dilation of the extra hepatic duct is seen. The stomach is unremarkable. There is no small bowel obstruction. The appendix is normal. There is no colon wall thickening. There is subcutaneous induration of the abdominal wall, slightly increased from prior study, nonspecific. Uterus is unremarkable. The urinary bladder is normal. No pelvic free fluid is seen. Question osteitis pubis on the right. IMPRESSION: 1. No acute abdominal or pelvic abnormality. 2. Post cholecystectomy. Right upper quadrant surgical drain. 3. Moderate atelectasis in the bilateral lower lobes. Electronically signed by: Jose Hughes MD (09/19/2021 2:35 PM) [id number] Course & Med Decision Making: Course & Med Decision Making Pertinent Labs and Imaging studies reviewed. (See chart for details) 41-year-old female, vital signs reviewed, presents emerged department concerning epigastric pain after cholecystectomy 3 days ago. Patient reports she was sent home Saturday afternoon with pain controlled, reports pain returned and she is unable to control with pain medications at home. Will rescan abdomen pelvis, order CBC, CMP, lipase, urinalysis assay. Will give ondansetron and morphine for nausea and pain. Patient's labs are unremarkable, patient does have hematuria however is currently on her menstrual cycle. CT is unremarkable, upon reevaluation of the patient, the patient states she is almost pain-free rating her pain a tolerable 1-2 out of 10. Discussed with patient ED work-up findings, will prescribe a short regimen of Gate to help with severe breakthrough pain, discussed with patient medication use and side effects, keep all follow-up appointments with surgeon and GI specialty, patient gave verbal understanding of and is amenable to ED discharge planning. Discussed with the patient all findings and diagnostic testing as well as the need to follow-up with their primary care provider for further evaluation and treatment or return to the ED if any new or worsening symptoms. Strict return precautions were also discussed at length, the patient voiced understanding and agreement with the discharge planning. The patient was nontoxic in appearance, in no apparent distress, and hemodynamically stable at the time of disposition. Dragon Disclaimer: Dragon Disclaimer: This electronic medical record was generated, in whole or in part, using a voice recognition dictation system. Departure Departure Impression: Primary Impression: Acute postoperative abdominal pain Disposition: HOME / SELF CARE / HOMELESS Condition: GOOD Referrals: SANDRA JUAREZ MD (PCP) WERO LONDONO MD Patient Instructions: Abdominal Pain Additional Instructions: You were seen today in the emergency department for abdominal pain. You had a recent gallbladder removal surgery 2 days ago, lab work was redrawn today and compared to your previous lab work, there are no concerning findings that would require admission to the hospital. A CT scan was repeated today to evaluate the surgical site along with your entire abdomen and pelvis, there were no concerning findings there would require readmission to the hospital or intervention by a specialist. You were given 5 mg of morphine intravenously along with 1 L normal saline and 4 mg of Zofran, this has relieved your pain, you are no longer nauseated. You and I have made a joint decision to discharge you to home. I will prescribe for you orally dissolving antinausea medication Zofran and 12 tablets of Gate for acute severe pain. Please use as directed, do not operate heavy machinery or drive or perform dangerous activities while taking this narcotic pain medication. Please keep all of your upcoming appointments, see Dr. Juarez soon, please keep your surgeon follow-up appointment with Dr. Londono on the of this month. Thank you for visiting our Emergency Department. It was a pleasure taking care of you today in the emergency department and we appreciate you trusting us with your care. If any additional problems come up don't hesitate to return to visit us. Please follow up with your primary care provider so they can plan additional care if needed and know about the problem that you had. If symptoms worsen come back to the Emergency Department. Any concerning symptoms that start such as chest pain, shortness of air, weakness or numbness on one side of the body, running high fevers or any other concerning symptoms return to the ER. EMERGENCY DEPARTMENT GENERAL DISCHARGE INSTRUCTIONS Thank you for coming to [facility] Emergency Department (ED) today and trusting us with you care. We trust that you had a positive experience in our Emergency Department. If you wish to speak to the department management, you may call the Director at [phone]. YOUR FOLLOW UP INSTRUCTIONS ARE FOLLOWS: 1. Do you have a private Doctor? If you do not have a private doctor, please ask for a resource list of physicians or clinics that may be able to assist you with follow up care. 2. The Emergency Physicain has interpreted your x-rays. The X-Ray specialist will also review them. If there is a change in the findings, you will be notified in 48 hours when at all possible. 3. A lab test or culture has been done, your results will be reviewed and you will be notified if you need a change in treatment. ADDITIONAL INSTRUCTIONS AND INFORMATION: 1. Your care today has been supervised by a physician who is specially trained in emergency care. Many problems require more than one evaluation for a complete diagnosis and treatment. We recommend that you schedule your follow up appointment as r ecommended to ensure complete treatment of you illness or injury. If you are unable to obtain follow up care and continue to have a problem, or if your condition worsens, we recommend that you return to the ED. 2. We are not able to safely determine your condition over the phone nor are we able to give sound medical advice over the phone. For these safety reasons, if you call for medical advice we will ask you to come to the ED for further evaluation. 3. If you have any questions regarding these discharge instructions please call the ED at [phone]. SAFETY INFORMATION: In the interest of safety, wellness, and injury prevention; we encourage you to wear your sealbelt, if you smoke; quite smoking, and we encourage family to use a protective helmet for bicycling and other sporting events that present an increased risk for head injury. IF YOUR SYMPTOMS WORSEN OR NEW SYMPTOMS DEVELOP, OR YOU HAVE CONCERNS ABOUT YOUR CONDITION; OR IF YOUR CONDITION WORSENS WHILE YOU ARE WAITING FOR YOUR FOLLOW UP APPOINTMENT; EITHER CONTACT YOUR PRIMARY CARE DOCTOR, THE PHYSICIAN WHOSE NAME AND NUMBER YOU WERE GIVEN, OR RETURN TO THE ED IMMEDIATELY. Scripts Hydrocodone Bit/Acetaminophen (HYDROCODONE-APAP 10325 ) 1 Tab Tablet 1 TAB PO PRN Q6HRS PRN for SEVERE PAIN 7-10, #12 TAB 0 Refills Prov: SANDRA ANNE APRN 09/19/21 Ondansetron (ONDANSETRON ODT) 4 Mg Tab.rapdis 1 TAB PO PRN Q6-8HRS for Nausea, #16 TAB 0 Refills Prov: SANDRA ANNE APRN 09/19/21 SANDRA ANNE APRN Sep 19, 2021 16:21
--- NOTE | 2021-09-20 08:43 | PDOC3 ---
[facility]-Discharge Summary Discharge Diagnosis: Discharge Diagnosis: Acute abdominal pain secondary to cholelithiasis status post lap yousuf 09/17/2021 Choledocholithiasis, pending ERCP Transaminitis suggestive of obstructive biliary disease Hospital Course: Hospital Course: 41 year old female coming in for epigastric pain that radiates to her back. Patient states is been present for about 2 days. Says it comes and goes and is worsening foods, especially are fatty or greasy. Patient says she is sometimes vomiting from the pain. Denies any change in bowel movements or diarrhea. 09/17/2021 No acute events overnight. Patient seen examined bedside. Pain currently is 7 out of 10 while in bed. Appropriate from surgical incisions. Denies any nausea vomiting. Filling defect seen on IOC. GI consulted and pending evaluation. Likely will need ERCP before discharge. LFTs are trending downwards. Patient's chart, labs, images were reviewed and discussed with RN She will need to follow up closely with GI and general surgery. By day of discharge, pt was clinically stable and ready for discharge. Rest of hospital course was uneventful Disposition: Disposition/Orders: D/C to Home Activity: Activity: Resume previous activity Diet: Diet: Cardiac Medications: Home Meds Active Scripts Hydrocodone Bit/Acetaminophen (HYDROCODONE-APAP 10-325 ) 1 Tab Tablet, 1 TAB PO PRN Q6HRS PRN for SEVERE PAIN 7-10, #12 TAB 0 Refills Prov:SANDRA ANNE SEVERITY OF ILLNESS COORDINATOR 09/19/21 Ondansetron (ONDANSETRON ODT) 4 Mg Tab.rapdis, 1 TAB PO PRN Q6-8HRS for Nausea, #16 TAB 0 Refills Prov:SANDRA ANNE APRN 09/19/21 Acetaminophen (ACETAMINOPHEN) 325 Mg Tablet, 650 MG PO PRN Q4HRS PRN for TEMP OVER 100.4F OR MILD PAIN for 7 Days, #42 TAB 2 Refills Prov:SHILO COFFEY MD 09/18/21 Ibuprofen (IBUPROFEN) 400 Mg Tablet, 400 MG PO PRN Q6HRS PRN for INFLAMMATION for 5 Days, #20 TAB Prov:SHILO COFFEY MD 09/18/21 Sennosides/Docusate Sodium (Senna-Docusate Sodium Tablet) 1 Each Tablet, 1 TAB PO DAILY for constipation for 20 Days, #20 TAB 0 Refills Prov:SHILO COFFEY MD 09/18/21 Reported Medications Omeprazole/Sodium Bicarbonate (OMEPRAZOLE-BICARB 20-1,100 CAP) 1 Each Capsule, 1 EACH PO HS PRN for INDIGESTION, CAP 09/16/21 Scheduled Ondansetron (Ondansetron Odt), 1 TAB PO PRN Q6-8HRS Sennosides/Docusate Sodium (Senna-Docusate Sodium Tablet), 1 TAB PO DAILY Scheduled PRN Acetaminophen (Acetaminophen), 650 MG PO PRN Q4HRS PRN for TEMP OVER 100.4F OR MILD PAIN Hydrocodone Bit/Acetaminophen (Hydrocodone-Apap 10-325 ), 1 TAB PO PRN Q6HRS PRN for SEVERE PAIN 7-10 Ibuprofen (Ibuprofen), 400 MG PO PRN Q6HRS PRN for INFLAMMATION Omeprazole/Sodium Bicarbonate (Omeprazole-Bicarb 20-1,100 Cap), 1 EACH PO HS PRN for INDIGESTION, (Reported) Total Time: Total Time: Total time spent was 32 minutes in preparing scripts and discharge planning with SW and RN. Patient seen and examined on day of Discharge. Justicifation of Admission Dx: Justifications for Admission: Justification of Admission Dx: Yes SHILO COFFEY MD Sep 20, 2021 08:43
== END 2021-09-19 16:38 | disposition home or self-care (01) ==
LOC: ER 11:53
DX: G89.18 Other acute postprocedural pain (principal); R10.13 Epigastric pain; Z90.49 Acquired absence of other specified parts of digestive tract
CPT/HCPCS: 36415; 74177; 80053; 81001; 83690; 83735; 85025; 87086; 96361; 96374; 96375; 99285; J2270; J2405; J7030

== ENCOUNTER 2021-09-24 05:43 | Inpatient (IN) | payer SELFPAY ==
[~2021-09-24] VITALS: Ht 170.2 cm; Wt 84.0 kg
[~2021-09-24 05:43] MED LIST changes: +HYDR-2769 PO; +ONDA4TAB12 PO
--- NOTE | 2021-09-24 06:04 | PHYS DOC ---
Past Medical History Past Surgical History: Cholecystectomy Additional Past Surgical Histo: BREAST AUG AND TUMMY TUCK Smoking Status: Never Smoker Alcohol Use: None Drug Use: None General Adult HPI: HPI: Patient is a 41 year old female who presents here with generalized upper abdominal pain, with nausea and vomiting. She is postop from a cholecystectomy on 09/16/21. She had been admitted for symptomatic cholelithiasis and concern for choledocholithiasis. GI was consulted and initially planned for MRCP to evaluate for common bile duct stone, however was ultimately not done, as her LFTs were trending downward and she was tolerating oral fluids postoperatively. She has a MARJORIE drain, draining a small amount of serosanguineous fluid. She denies fevers or chills. She was seen here on 09/19/2021 for postoperative pain she had been doing well taking hydrocodone afterward, until last night around 10 PM when her pain suddenly acutely worsened. She denies constipation or diarrhea patient has hematemesis, melena or hematochezia. She denies urinary symptoms patient is chest pain, cough, dyspnea. She is not scheduled to go back and see Dr. Londono of general surgery until 10/03/2021. Review of Systems: Review of Systems: Constitutional: Denies fever or chills. [] HENT: Denies nasal congestion or sore throat. [] Respiratory: Denies cough or shortness of breath. [] Cardiovascular: Denies chest pain or edema. [] GI: Generalized upper and mid abdominal pain, nausea, vomiting. Denies bowel habit changes. : Denies urinary symptoms Musculoskeletal: Denies back pain or joint pain. [] Integument: Denies rash. [] Neurologic: Denies headache, focal weakness or sensory changes. [] Psychiatric: Denies depression or anxiety. [] Heart Score: C/O Chest Pain: No Risk Factors: Risk Factors: DM, Current or recent (<one month) smoker, HTN, HLP, family history of CAD, obesity. Risk Scores: Score 0 - 3: 2.5% MACE over next 6 weeks - Discharge Home Score 4 - 6: 20.3% MACE over next 6 weeks - Admit for Clinical Observation Score 7 - 10: 72.7% MACE over next 6 weeks - Early Invasive Strategies Allergies: Allergies: Allergies Coded Allergies Type Severity Reaction Last Updated Verified No Known Drug Allergies 09/16/21 No Physical Exam: PE: Constitutional: Well developed, well nourished, no acute distress, non-toxic appearance. [] HENT: Normocephalic, atraumatic Eyes: Sclera are anicteric Neck: Normal range of motion, no tenderness, supple, no stridor. Trachea midline, no JVD Cardiovascular:Heart rate regular rhythm, 2 radial +2 posterior tibial pulses bilaterally Lungs & Thorax: Bilateral breath sounds clear to auscultation, no rales, rhonchi or wheezes Abdomen: Abdomen is soft, nondistended, hypoactive but present bowel sounds, epigastric and periumbilical and right upper quadrant tenderness and left upper quadrant tenderness to palpation. Voluntary guarding. No rebound tenderness. No lower abdominal tenderness. No CVA tenderness. Incisions appear to be well- healing, warm, dry, intact. No surrounding warmth or erythema. MARJORIE drain site is clean, dry, intact. Skin: Warm, dry, no erythema, no rash. [] Back: No tenderness, no CVA tenderness. [] Extremities: No tenderness, no cyanosis, no clubbing, ROM intact, no edema. No calf tenderness. Neurologic: Alert and oriented X 3, normal motor function, normal sensory function, no focal deficits noted. [] Psychologic: She is anxious but pleasant and cooperative EKG: EKG: [] Radiology/Procedures: Radiology/Procedures: IMAGING REPORT Signed PATIENT: MURALI SOLIS ACCOUNT: [id number] : 1980 LOCATION: ER AGE: 41 SEX: F EXAM STATUS: REG ER ORD. PHYSICIAN: MICHELLE LOZADA DO REASON: abdominal pain, n/v, s/p cholecystectomy;OMNI 300,75ML PROCEDURE: CT ABD PELV W/ IV CONTRST ONLY EXAM: Abdomen and pelvis CT with intravenous contrast. HISTORY: Pain. TECHNIQUE: Computed tomographic images of the abdomen and pelvis were obtained following the administration of intravenous contrast. Multiplanar reformatting was performed. *One or more of the following individualized dose reduction techniques were utilized for this examination: 1. Automated exposure control. 2. Adjustment of the mA and/or kV according to patient size. 3. Use of iterative reconstruction technique. COMPARISON: 09/19/2021. FINDINGS: Evaluation of the lower thorax demonstrates stable left greater than right lower lobe atelectasis. There are implanted breast prostheses. The heart is normal in size. There is no pleural effusion. There is a right superolateral percutaneous drainage catheter coursing along the anterior right hepatic lobe and terminating anteriorly along the falciform ligament. There is a stable trace amount of fatty stranding within the ventral peritoneum along the anterior aspect of the liver and within the ventral abdominal wall due to recent laparoscopic surgery. There are surgical clips within the gallbladder fossa. There is biliary ductal dilatation. No drainable fluid collection is seen. The stomach, pancreas, spleen, adrenal glands and kidneys are unremarkable. There is no appendicitis. There is no bowel obstruction. The urinary bladder, uterus and adnexal regions are unremarkable. There is a small linear calcification or surgical material within the left ventral pelvis. There is scar ring within the ventral abdominal wall. The aorta is normal in caliber. There is no acute or suspicious osseous finding. IMPRESSION: 1. Stable findings consistent with relative recent cholecystectomy. There is a percutaneous drainage catheter terminating along the falciform ligament and a small amount of postoperative stranding along the ventral liver and ventral abdominal wall fat. There is also stable biliary ductal dilatation likely due to reservoir effect. No obstructing lesion or drainable fluid collection is seen. 2. Stable left greater than right lower lobe airspace disease likely due to atelectasis. Electronically signed by: Keisha Bernard MD (09/24/2021 8:10 AM) [facility] DICTATED and SIGNED BY: KEISHA BERNARD MD DATE: 09/24/21 [id number] 0 Course & Med Decision Making: Course & Med Decision Making Pertinent Labs and Imaging studies reviewed. (See chart for details) The patient is given IV fluids, IV Zofran, IV morphine x2. She reports feeling much better. She is kept n.p.o. Transaminases appear to be elevating, even from her most recent ED visit on 09/19/2021. Bilirubin is mildly elevated. CT imaging does not reveal any obvious acute process. I have discussed the find ings, differential diagnosis and plan of care with the patient. I recommend hospitalization, repeat GI consultation. I feel that she does need further evaluation for possibility of choledocholithiasis, MRCP and/or ERCP evaluation. She is comfortable with the plan for admission. She is accepted for admission by Dr. Presley. Walker Disclaimer: Walker Disclaimer: This electronic medical record was generated, in whole or in part, using a voice recognition dictation system. Departure Departure Impression: Primary Impression: Acute postoperative abdominal pain Additional Impressions: Nausea and vomiting Qualified Codes: R11.2 - Nausea with vomiting, unspecified Transaminitis Admitting Physician: EVETTE (Dr. Presley) Condition: STABLE Referrals: SANDRA SOUZA MD (PCP) MICHELLE LOZADA DO Sep 24, 2021 06:04
[2021-09-24] MEDS ORDERED: ONDANSETRON PF 4 MG/2 ML VIAL. IVP ONE (06:30)
[2021-09-24] MEDS ORDERED: IV NORMAL SALINE 1000ML BAG 1,000 ML IV ONE (06:30)
[2021-09-24] MEDS ORDERED: MORPHINE SULFATE 4 MG/ML INJ. IVP ONE ×2 (06:30→07:30)
[2021-09-24 06:59] LABS: BASO % 0 % (0-3); EOS # 0.2 x10^3/uL (0.0-0.7); EOS % 3 % (0-3); HEMATOCRIT 42.7 % (36.0-47.0); HEMOGLOBIN 13.9 g/dL (12.0-15.5); LYMPH # 1.1 x10^3/uL (1.0-4.8); LYMPH % 16 % (24-48); MEAN CORPUSCULAR HEMOGLOBIN 29 pg (25-35); MEAN CORPUSCULAR HGB CONC 33 g/dL (31-37); MEAN CORPUSCULAR VOLUME 89 fL (79-100); MONO # 0.5 x10^3/uL (0.0-1.1); MONO % 7 % (0-9); NEUT % 74 % (31-73); PLATELET COUNT 292 x10^3/uL (140-400); RED BLOOD COUNT 4.81 x10^6/uL (3.50-5.40); RED CELL DISTRIBUTION WIDTH 13.8 % (11.5-14.5); WHITE BLOOD COUNT 6.8 x10^3/uL (4.0-11.0)
[2021-09-24 07:02] LABS: CALCIUM 9.4 mg/dL (8.5-10.1); CREATININE 0.8 mg/dL (0.6-1.0); GFR 79.4; POTASSIUM 4.8 mmol/L (3.5-5.1)
[2021-09-24 07:08] LABS: ALBUMIN 3.9 g/dL (3.4-5.0); ALBUMIN/GLOBULIN RATIO 1.1 (1.0-1.7); MAGNESIUM 2.2 mg/dL (1.8-2.4); TOTAL BILIRUBIN 1.7 mg/dL (0.2-1.0); TOTAL PROTEIN 7.5 g/dL (6.4-8.2)
[2021-09-24] MEDS ORDERED: IOHEXOL 300 MG/ML 100ML VIAL. IV ONE (07:15)
[2021-09-24] MEDS ORDERED: CONTRAST GIVEN. MC PRN (07:30)
[2021-09-24 07:36] LABS: PREG TEST PT QUAL NEGATIVE (NEG)
[2021-09-24 07:42] LABS: BILIRUBIN,URINE SMALL (NEG); CLARITY,URINE CLEAR; COLOR,URINE YELLOW
[2021-09-24 07:43] LABS: NITRITE,URINE NEGATIVE (NEG); PH,URINE 7.5 (<5.0-8.0); PROTEIN,URINE TRACE mg/dL (NEG-TRACE)
[2021-09-24 07:45] LABS: BACTERIA,URINE 0 /HPF (0-FEW); RBC,URINE OCC /HPF (0-2); WBC,URINE OCC /HPF (0-4)
--- NOTE | 2021-09-24 08:12 | RAD ---
EXAM: Abdomen and pelvis CT with intravenous contrast. HISTORY: Pain. TECHNIQUE: Computed tomographic images of the abdomen and pelvis were obtained following the administ ration of intravenous contrast. Multiplanar reformatting was performed. *One or more of the following individualized dose reduction techniques were utilized for this examina tion: 1. Automated exposure control. 2. Adjustment of the mA and/or kV according to patient size. 3. Use of iterative reconstruction technique. COMPARISON: 09/19/2021. FINDINGS: Evaluation of the lower thorax demonstrates stable left greater than right lower lobe atele ctasis. There are implanted breast prostheses. The heart is normal in size. There is no pleural effus ion. There is a right superolateral percutaneous drainage catheter coursing along the anterior right hepat ic lobe and terminating anteriorly along the falciform ligament. There is a stable trace amount of fa tty stranding within the ventral peritoneum along the anterior aspect of the liver and within the patrizia tral abdominal wall due to recent laparoscopic surgery. There are surgical clips within the gallbladd er fossa. There is biliary ductal dilatation. No drainable fluid collection is seen. The stomach, pancreas, spleen, adrenal glands and kidneys are unremarkable. There is no appendicitis. There is no bowel obstruction. The urinary bladder, uterus and adnexal regions are unremarkable. The re is a small linear calcification or surgical material within the left ventral pelvis. There is scar ring within the ventral abdominal wall. The aorta is normal in caliber. There is no acute or suspicio us osseous finding. IMPRESSION: 1. Stable findings consistent with relative recent cholecystectomy. There is a percutaneous drainage catheter terminating along the falciform ligament and a small amount of postoperative stranding along the ventral liver and ventral abdominal wall fat. There is also stable biliary ductal dilatation lik huber due to reservoir effect. No obstructing lesion or drainable fluid collection is seen. 2. Stable left greater than right lower lobe airspace disease likely due to atelectasis. Electronically signed by: Keisha Sanford MD (09/24/2021 8:10 AM) [facility]
[2021-09-24] MEDS ORDERED: IV DEXTROSE 5 %-0.45 % NACL 1,000 ML IV ONE (08:45)
[2021-09-24] MEDS ORDERED: ONDANSETRON PF 4 MG/2 ML VIAL. IVP PRN ×2 (08:45→10:15)
[2021-09-24] MEDS: MORPHINE SULFATE 4 MG/ML INJ. IVP PRN ×3 (09:57→19:40)
[2021-09-24] MEDS ORDERED: PROCHLORPERAZINE 10 MG/2 ML VIAL. IVP PRN (10:15)
[2021-09-24] MEDS ORDERED: ZOLPIDEM 5 MG TABLET. PO PRN (10:15)
[2021-09-24] MEDS ORDERED: IV NORMAL SALINE 1000ML BAG 1,000 ML IV SCH (10:15)
[2021-09-24] MEDS ORDERED: oxyCODONE/APAP 5/325 1 TAB TABLET PO PRN ×2 (10:15)
[2021-09-24] MEDS ORDERED: ELECTROLYTE (NON-ICU) PROTOCOL. MC PRN (10:15)
[2021-09-24] MEDS ORDERED: ACETAMINOPHEN 325 MG TABLET. PO PRN (10:15)
[2021-09-24] MEDS ORDERED: CALCIUM CARBONATE 500 MG TAB.CHEW PO PRN (10:15)
[2021-09-24 10:45] VITALS: BP 146/87
--- NOTE | 2021-09-24 14:17 | PDOC2 ---
CONSULT Date of Consult Date of Consult DATE: 09/24/21 TIME: 14:13 Reason for Consult Reason for Consult: Recurrent abdominal pain, choledocholithiasis Identification/Chief Complaint Chief Complaint This is a 41-year-old female who is status post cholecystectomy and had what appeared to be a common duct stone on intraoperative cholangiogram. Elevated liver function studies were also present. She improved initially when she was readmitted after the surgery last week and was able to be discharged but continued to have intermittent pain. She actually went to the emergency room on Saturday was given some pain medications and saw some improvement. Her pain is continuous or intermittent but not necessarily related to eating and in fact she tolerates diet well without vomiting. She denies any constipation, hematemesis melena or hematochezia. No fever or chills. She represents because of the persistent nature of the pain. History of Present Illness Reason for Visit: This is a 41-year-old female who is status post cholecystectomy and had what appeared to be a common duct stone on intraoperative cholangiogram. Elevated l iver function studies were also present. She improved initially when she was readmitted after the surgery last week and was able to be discharged but continued to have intermittent pain. She actually went to the emergency room on Saturday was given some pain medications and saw some improvement. Her pain is continuous or intermittent but not necessarily related to eating and in fact she tolerates diet well without vomiting. She denies any constipation, hematemesis melena or hematochezia. No fever or chills. She represents because of the persistent nature of the pain. Past Surgical History Past Surgical History: Tubal Ligation, Other Family History Family History: Other Social History ALCOHOL: none Drugs: None Lives: Alone Current Problem List Problem List Problems Medical Problems: (1) Acute postoperative abdominal pain Status: Acute (2) Nausea and vomiting Status: Acute (3) Transaminitis Status: Acute Current Medications Current Medications Current Medications Sodium Chloride 1,000 ml @ 1,000 mls/hr 1X ONCE IV Last administered on 09/24/21at 06:34; Start 09/24/21 at 06:30; Stop 09/24/21 at 07:29; Status DC Ondansetron HCl (Zofran) 4 mg 1X ONCE IVP Last administered on 09/24/21at 06:34; Start 09/24/21 at 06:30; Stop 09/24/21 at 06:31; Status DC Morphine Sulfate (Morphine Sulfate) 4 mg 1X ONCE IVP Last administered on 09/24/21at 06:35; Start 09/24/21 at 06:30; Stop 09/24/21 at 06:31; Status DC Iohexol (Omnipaque 300 Mg/ml) 75 ml 1X ONCE IV Last administered on 09/24/21at 07:45; Start 09/24/21 at 07:15; Stop 09/24/21 at 07:19; Status DC Info (CONTRAST GIVEN -- Rx MONITORING) 1 each PRN DAILY PRN MC SEE COMMENTS; S tart 09/24/21 at 07:30; Stop 09/26/21 at 07:29 Morphine Sulfate (Morphine Sulfate) 4 mg 1X ONCE IVP Last administered on 09/24/21at 07:30; Start 09/24/21 at 07:30; Stop 09/24/21 at 07:31; Status DC Ondansetron HCl (Zofran) 4 mg PRN Q8HRS PRN IVP NAUSEA/VOMITING Last administered on 09/24/21at 09:56; Start 09/24/21 at 08:45; Stop 09/25/21 at 08:44 Morphine Sulfate (Morphine Sulfate) 4 mg PRN Q2HR PRN IVP pain Last administered on 09/24/21at 09:57; Start 09/24/21 at 08:45 Dextrose/Sodium Chloride 1,000 ml @ 100 mls/hr 1X ONCE IV Last administered on 09/24/21at 10:01; Start 09/24/21 at 08:45; Stop 09/24/21 at 18:44 Sodium Chloride 1,000 ml @ 100 mls/hr Q10H IV ; Start 09/24/21 at 10:15; Stop 09/24/21 at 20:14 Ondansetron HCl (Zofran) 4 mg PRN Q6HRS PRN IVP NAUSEA/VOMITING; Start 09/24/21 at 10:15 Prochlorperazine Edisylate (Compazine) 10 mg PRN Q6HRS PRN IVP NAUSEA/VOMITING, 2ND CHOICE; Start 09/24/21 at 10:15 Calcium Carbonate/ Glycine (Tums) 500 mg PRN Q3HRS PRN PO UPSET STOMACH; Start 09/24/21 at 10:15 Zolpidem Tartrate (Ambien) 5 mg PRN QHS PRN PO INSOMNIA, MAY REPEAT IN 1HR; Start 09/24/21 at 10:15 Info (Non-Icu Electrolyte Protocol) 1 ea PRN DAILY PRN MC SEE COMMENTS; Start 09/24/21 at 10:15 Oxycodone/ Acetaminophen (Percocet 5/325) 1 tab PRN Q4HRS PRN PO MILD PAIN, 1ST CHOICE; Start 09/24/21 at 10:15 Oxycodone/ Acetaminophen (Percocet 5/325) 2 tab PRN Q4HRS PRN PO MODERATE PAIN, SEVERE PAIN; Start 09/24/21 at 10:15 Acetaminophen (Tylenol) 650 mg PRN Q6HRS PRN PO Headaches, Temp > 101.5F; Start 09/24/21 at 10:15 Senna/Docusate Sodium (Senna Plus) 1 tab BID PO ; Start 09/24/21 at 21:00 Heparin Sodium (Porcine) (Heparin Sodium) 5,000 unit Q12HR SQ ; Start 09/24/21 at 21:00 Morphine Sulfate (Morphine Sulfate) 2 mg PRN Q2HR PRN IVP PAIN; Start 09/24/21 at 11:00 Active Scripts Active Hydrocodone-Apap 10-325 (Hydrocodone Bit/Acetaminophen) 1 Tab Tablet 1 Tab PO PRN Q6HRS PRN Ondansetron Odt (Ondansetron) 4 Mg Tab.rapdis 1 Tab PO PRN Q6-8HRS Acetaminophen 325 Mg Tablet 650 Mg PO PRN Q4HRS PRN 7 Days Ibuprofen 400 Mg Tablet 400 Mg PO PRN Q6HRS PRN 5 Days Senna-Docusate Sodium Tablet (Sennosides/Docusate Sodium) 1 Each Tablet 1 Tab PO DAILY 20 Days Reported Omeprazole-Bicarb 20-1,100 Cap (Omeprazole/Sodium Bicarbonate) 1 Each Capsule 1 Each PO HS PRN Allergies Allergies: Coded Allergies: No Known Drug Allergies (Unverified , 09/24/21) Physical Exam General: Alert, Oriented X3, Cooperative HEENT: Atraumatic Lungs: Clear to auscultation Heart: Regular rate, Normal S1, Normal S2 Abdomen: Normal bowel sounds, Soft, No hepatosplenomegaly, No masses (Mild epigastric tenderness) Extremities: No clubbing Skin: No rashes Neuro: Normal gait, Normal speech Psych/Mental Status: Mental status NL Vitals VITALS Vital Signs Date Time Temp Pulse Resp B/P (MAP) Pulse Ox O2 Delivery O2 Flow Rate FiO2 09/24/21 10:45 98.1 89 18 146/87 (106) 92 98.1 09/24/21 10:27 Room Air Labs Labs Laboratory Tests Test 09/24/21 06:35 09/24/21 07:15 White Blood Count 6.8 x10^3/uL (4.0-11.0) Red Blood Count 4.81 x10^6/uL (3.50-5.40) Hemoglobin 13.9 g/dL (12.0-15.5) Hematocrit 42.7 % (36.0-47.0) Mean Corpuscular Volume 89 fL (79-100) Mean Corpuscular Hemoglobin 29 pg (25-35) Mean Corpuscular Hemoglobin Concent 33 g/dL (31-37) Red Cell Distribution Width 13.8 % (11.5-14.5) Platelet Count 292 x10^3/uL (140-400) Neutrophils (%) (Auto) 74 % (31-73) Lymphocytes (%) (Auto) 16 % (24-48) Monocytes (%) (Auto) 7 % (0-9) Eosinophils (%) (Auto) 3 % (0-3) Basophils (%) (Auto) 0 % (0-3) Neutrophils # (Auto) 5.0 x10^3/uL (1.8-7.7) Lymphocytes # (Auto) 1.1 x10^3/uL (1.0-4.8) Monocytes # (Auto) 0.5 x10^3/uL (0.0-1.1) Eosinophils # (Auto) 0.2 x10^3/uL (0.0-0.7) Basophils # (Auto) 0.0 x10^3/uL (0.0-0.2) Sodium Level 141 mmol/L (136-145) Potassium Level 4.8 mmol/L (3.5-5.1) Chloride Level 103 mmol/L (98-107) Carbon Dioxide Level 27 mmol/L (21-32) Anion Gap 11 (6-14) Blood Urea Nitrogen 12 mg/dL (7-20) Creatinine 0.8 mg/dL (0.6-1.0) Estimated GFR (Cockcroft-Gault) 79.4 BUN/Creatinine Ratio 15 (6-20) Glucose Level 141 mg/dL (70-99) Lactic Acid Level 1.2 mmol/L (0.4-2.0) Calcium Level 9.4 mg/dL (8.5-10.1) Magnesium Level 2.2 mg/dL (1.8-2.4) Total Bilirubin 1.7 mg/dL (0.2-1.0) Aspartate Amino Transf (AST/SGOT) 511 U/L (15-37) Alanine Aminotransferase (ALT/SGPT) 791 U/L (14-59) Alkaline Phosphatase 286 U/L (46-116) Total Protein 7.5 g/dL (6.4-8.2) Albumin 3.9 g/dL (3.4-5.0) Albumin/Globulin Ratio 1.1 (1.0-1.7) Lipase 177 U/L (73-393) Serum Test, Qualitative Negative (NEG) Urine Collection Type Unknown Urine Color Yellow Urine Clarity Clear Urine pH 7.5 (<5.0-8.0) Urine Specific [place] 1.015 (1.000-1.030) Urine Protein Trace mg/dL (NEG-TRACE) Urine Glucose (UA) Negative mg/dL (NEG) Urine Ketones (Stick) Negative mg/dL (NEG) Urine Blood Negative (NEG) Urine Nitrite Negative (NEG) Urine Bilirubin Small (NEG) Urine Urobilinogen Dipstick 2.0 mg/dL (0.2 mg/dL) Urine Leukocyte Esterase Trace (NEG) Urine RBC Occ /HPF (0-2) Urine WBC Occ /HPF (0-4) Urine Squamous Epithelial Cells Mod /LPF Urine Bacteria 0 /HPF (0-FEW) Urine Mucus Slight /LPF Laboratory Tests Test 09/24/21 06:35 09/24/21 07:15 White Blood Count 6.8 x10^3/uL (4.0-11.0) Red Blood Count 4.81 x10^6/uL (3.50-5.40) Hemoglobin 13.9 g/dL (12.0-15.5) Hematocrit 42.7 % (36.0-47.0) Mean Corpuscular Volume 89 fL (79-100) Mean Corpuscular Hemoglobin 29 pg (25-35) Mean Corpuscular Hemoglobin Concent 33 g/dL (31-37) Red Cell Distribution Width 13.8 % (11.5-14.5) Platelet Count 292 x10^3/uL (140-400) Neutrophils (%) (Auto) 74 % (31-73) Lymphocytes (%) (Auto) 16 % (24-48) Monocytes (%) (Auto) 7 % (0-9) Eosinophils (%) (Auto) 3 % (0-3) Basophils (%) (Auto) 0 % (0-3) Neutrophils # (Auto) 5.0 x10^3/uL (1.8-7.7) Lymphocytes # (Auto) 1.1 x10^3/uL (1.0-4.8) Monocytes # (Auto) 0.5 x10^3/uL (0.0-1.1) Eosinophils # (Auto) 0.2 x10^3/uL (0.0-0.7) Basophils # (Auto) 0.0 x10^3/uL (0.0-0.2) Sodium Level 141 mmol/L (136-145) Potassium Level 4.8 mmol/L (3.5-5.1) Chloride Level 103 mmol/L (98-107) Carbon Dioxide Level 27 mmol/L (21-32) Anion Gap 11 (6-14) Blood Urea Nitrogen 12 mg/dL (7-20) Creatinine 0.8 mg/dL (0.6-1.0) Estimated GFR (Cockcroft-Gault) 79.4 BUN/Creatinine Ratio 15 (6-20) Glucose Level 141 mg/dL (70-99) Lactic Acid Level 1.2 mmol/L (0.4-2.0) Calcium Level 9.4 mg/dL (8.5-10.1) Magnesium Level 2.2 mg/dL (1.8-2.4) Total Bilirubin 1.7 mg/dL (0.2-1.0) Aspartate Amino Transf (AST/SGOT) 511 U/L (15-37) Alanine Aminotransferase (ALT/SGPT) 791 U/L (14-59) Alkaline Phosphatase 286 U/L (46-116) Total Protein 7.5 g/dL (6.4-8.2) Albumin 3.9 g/dL (3.4-5.0) Albumin/Globulin Ratio 1.1 (1.0-1.7) Lipase 177 U/L (73-393) Serum Test, Qualitative Negative (NEG) Urine Collection Type Unknown Urine Color Yellow Urine Clarity Clear Urine pH 7.5 (<5.0-8.0) Urine Specific [place] 1.015 (1.000-1.030) Urine Protein Trace mg/dL (NEG-TRACE) Urine Glucose (UA) Negative mg/dL (NEG) Urine Ketones (Stick) Negative mg/dL (NEG) Urine Blood Negative (NEG) Urine Nitrite Negative (NEG) Urine Bilirubin Small (NEG) Urine Urobilinogen Dipstick 2.0 mg/dL (0.2 mg/dL) Urine Leukocyte Esterase Trace (NEG) Urine RBC Occ /HPF (0-2) Urine WBC Occ /HPF (0-4) Urine Squamous Epithelial Cells Mod /LPF Urine Bacteria 0 /HPF (0-FEW) Urine Mucus Slight /LPF Images Images CT COMPARISON: 09/19/2021. FINDINGS: Evaluation of the lower thorax demonstrates stable left greater than right lower lobe atelectasis. There are implanted breast prostheses. The heart is normal in size. There is no pleural effusion. There is a right superolateral percutaneous drainage catheter coursing along the anterior right hepatic lobe and terminating anteriorly along the falciform ligament. There is a stable trace amount of fatty stranding within the ventral peritoneum along the anterior aspect of the liver and within the ventral abdominal wall due to recent laparoscopic surgery. There are surgical clips within the gallbladder fossa. There is biliary ductal dilatation. No drainable fluid collection is seen. The stomach, pancreas, spleen, adrenal glands and kidneys are unremarkable. There is no appendicitis. There is no bowel obstruction. The urinary bladder, uterus and adnexal regions are unremarkable. There is a small linear calcification or surgical material within the left ventral pelvis. There is scarring within the ventral abdominal wall. The aorta is normal in caliber. There is no acute or suspicious osseous finding. IMPRESSION: 1. Stable findings consistent with relative recent cholecystectomy. There is a percutaneous drainage catheter terminating along the falciform ligament and a small amount of postoperative stranding along the ventral liver and ventral abdominal wall fat. There is also stable biliary ductal dilatation likely due to reservoir effect. No obstructing lesion or drainable fluid collection is seen. 2. Stable left greater than right lower lobe airspace disease likely due to atelectasis. Assessment/Plan Assessment/Plan Abdominal pain with prior evidence of probable post cholecystectomy choledocholithiasis. Persistent elevated liver function studies although not any worse than they were before or certainly suspicious for that retained stone. Her pain pattern however is a little bit unusual and that it is intermittent and persistent and not related to eating. Plan: As was discussed before, I think MRCP to confirm common duct stone is appropriate before proceeding on with ERCP. I will defer most of these options to Dr. Louis who saw her recently and will assume her GI care tomorrow RAMÓN ARREDONDO MD Sep 24, 2021 14:17
[2021-09-24 14:20] VITALS: BP 141/90
--- NOTE | 2021-09-24 18:16 | PDOC1 ---
History and Physical Date of Service: DOS: DATE: 09/24/21 TIME: 18:10 Chief Complaint: Chief Complain: postop abd pain, N/V History of Present Illness: HPI: Patient is a 41-year-old female presented here for ongoing abdominal pain nausea vomiting since overnight. She underwent cholecystectomy on 16 September. Reports not much improvement in her symptoms after the cholecystectomy. Report she was post to undergo an MRCP before discharge for possible bile duct stone but labs improving and symptoms somewhat t and l this was not performed. Still having ongoing pain presented back here on the eighth to the ER given pain control and discharged back home. Says the hydrocodone worked for a day or 2 then pain started returning. Pain really worsened last night causing her to present this morning. When I saw her bedside she was resting in bed in notable amount of distress. Provide pain control. Denies any fevers hematemesis melena chest pain shortness of breath Past Medical/Surgical History: PMH/PSH: Past Surgical History: Cholecystectomy Additional Past Surgical Histo: BREAST AUG AND TUMMY TUCK Smoking Status: Never Smoker Alcohol Use: None Drug Use: Non Allergies: Allergies: Coded Allergies: No Known Drug Allergies (Unverified , 09/24/21) Family History: Family History: Hypertension Current Medications: Current Medications Current Medications Sodium Chloride 1,000 ml @ 1,000 mls/hr 1X ONCE IV Last administered on 09/24/21at 06:34; Start 09/24/21 at 06:30; Stop 09/24/21 at 07:29; Status DC Ondansetron HCl (Zofran) 4 mg 1X ONCE IVP Last administered on 09/24/21at 06:34; Start 09/24/21 at 06:30; Stop 09/24/21 at 06:31; Status DC Morphine Sulfate (Morphine Sulfate) 4 mg 1X ONCE IVP Last administered on 09/24/21at 06:35; Start 09/24/21 at 06:30; Stop 09/24/21 at 06:31; Status DC Iohexol (Omnipaque 300 Mg/ml) 75 ml 1X ONCE IV Last administered on 09/24/21at 07:45; Start 09/24/21 at 07:15; Stop 09/24/21 at 07:19; Status DC Info (CONTRAST GIVEN -- Rx MONITORING) 1 each PRN DAILY PRN MC SEE COMMENTS; Start 09/24/21 at 07:30; Stop 09/26/21 at 07:29 Morphine Sulfate (Morphine Sulfate) 4 mg 1X ONCE IVP Last administered on 09/24/21at 07:30; Start 09/24/21 at 07:30; Stop 09/24/21 at 07:31; Status DC Ondansetron HCl (Zofran) 4 mg PRN Q8HRS PRN IVP NAUSEA/VOMITING Last ad ministered on 09/24/21at 09:56; Start 09/24/21 at 08:45; Stop 09/25/21 at 08:44 Morphine Sulfate (Morphine Sulfate) 4 mg PRN Q2HR PRN IVP pain Last administered on 09/24/21at 15:58; Start 09/24/21 at 08:45 Dextrose/Sodium Chloride 1,000 ml @ 100 mls/hr 1X ONCE IV Last administered on 09/24/21at 10:01; Start 09/24/21 at 08:45; Stop 09/24/21 at 18:44 Sodium Chloride 1,000 ml @ 100 mls/hr Q10H IV Last administered on 09/24/21at 16:03; Start 09/24/21 at 10:15; Stop 09/24/21 at 20:14 Ondansetron HCl (Zofran) 4 mg PRN Q6HRS PRN IVP NAUSEA/VOMITING; Start 09/24/21 at 10:15 Prochlorperazine Edisylate (Compazine) 10 mg PRN Q6HRS PRN IVP NAUSEA/VOMITING, 2ND CHOICE; Start 09/24/21 at 10:15 Calcium Carbonate/ Glycine (Tums) 500 mg PRN Q3HRS PRN PO UPSET STOMACH; Start 09/24/21 at 10:15 Zolpidem Tartrate (Ambien) 5 mg PRN QHS PRN PO INSOMNIA, MAY REPEAT IN 1HR; Start 09/24/21 at 10:15 Info (Non-Icu Electrolyte Protocol) 1 ea PRN DAILY PRN MC SEE COMMENTS; Start 09/24/21 at 10:15 Oxycodone/ Acetaminophen (Percocet 5/325) 1 tab PRN Q4HRS PRN PO MILD PAIN, 1ST CHOICE; Start 09/24/21 at 10:15 Oxycodone/ Acetaminophen (Percocet 5/325) 2 tab PRN Q4HRS PRN PO MODERATE PAIN, SEVERE PAIN; Start 09/24/21 at 10:15 Acetaminophen (Tylenol) 650 mg PRN Q6HRS PRN PO Headaches, Temp > 101.5F; Start 09/24/21 at 10:15 Senna/Docusate Sodium (Senna Plus) 1 tab BID PO ; Start 09/24/21 at 21:00 Heparin Sodium (Porcine) (Heparin Sodium) 5,000 unit Q12HR SQ ; Start 09/24/21 at 21:00 Morphine Sulfate (Morphine Sulfate) 2 mg PRN Q2HR PRN IVP PAIN; Start 09/24/21 at 11:00 Active Scripts Active Hydrocodone-Apap 10-325 (Hydrocodone Bit/Acetaminophen) 1 Tab Tablet 1 Tab PO PRN Q6HRS PRN Ondansetron Odt (Ondansetron) 4 Mg Tab.rapdis 1 Tab PO PRN Q6-8HRS Acetaminophen 325 Mg Tablet 650 Mg PO PRN Q4HRS PRN 7 Days Ibuprofen 400 Mg Tablet 400 Mg PO PRN Q6HRS PRN 5 Days Senna-Docusate Sodium Tablet (Sennosides/Docusate Sodium) 1 Each Tablet 1 Tab PO DAILY 20 Days Reported Omeprazole-Bicarb 20-1,100 Cap (Omeprazole/Sodium Bicarbonate) 1 Each Capsule 1 Each PO HS PRN ROS: Review of Systems Review of System Less known HPI 14 point review systems was negative Physical Exam: Vital Signs: Vital Signs Date Time Temp Pulse Resp B/P (MAP) Pulse Ox O2 Delivery O2 Flow Rate FiO2 09/24/21 16:28 Room Air 09/24/21 14:20 57 20 141/90 (107) 96 09/24/21 10:45 98.1 98.1 Physcial Exam: GEN: Notable stress due to pain HEENT: Normal cephalic, atraumatic, external auditory canals are patent EYES: Extraocular muscles are intact, pupil are equally round and reactive to light and accommodation MUSCULOSKELETAL: Well developed , well nourished, good range of motion ENDOCRINE: No thyromegaly was palpated LYMPHATICS: No cervical chain or axillary nodes were noted HEMATOPOIETIC: No bruising NECK: Supple, no JVD, no thyromegaly was noted LUNGS: Clear to auscultation in all lung jiménez without rhonchi or wheezing HEART: RRR, S1, S2 present. Peripheral pulses intact, no obvious murmurs noted ABDOMEN: Diffuse tenderness, normal bowel sounds EXTREMITIES: Without clubbing, cyanosis, or edema. Pedal pulses intact. Negative Homans sign NEUROLOGIC: Normal speech and tone. A&O x 3, moves all extremities, no obvious focal deficits PSYCHIATRIC: Normal affect, normal mood. Stable SKIN: No ulcerations or rashes, good skin turgor, no jaundice VASCULAR: Good capillary refill, neurovascular bundle appears to be intact Labs: Labs: Laboratory Tests Test 09/24/21 06:35 09/24/21 07:15 White Blood Count 6.8 x10^3/uL (4.0-11.0) Red Blood Count 4.81 x10^6/uL (3.50-5.40) Hemoglobin 13.9 g/dL (12.0-15.5) Hematocrit 42.7 % (36.0-47.0) Mean Corpuscular Volume 89 fL (79-100) Mean Corpuscular Hemoglobin 29 pg (25-35) Mean Corpuscular Hemoglobin Concent 33 g/dL (31-37) Red Cell Distribution Width 13.8 % (11.5-14.5) Platelet Count 292 x10^3/uL (140-400) Neutrophils (%) (Auto) 74 % (31-73) Lymphocytes (%) (Auto) 16 % (24-48) Monocytes (%) (Auto) 7 % (0-9) Eosinophils (%) (Auto) 3 % (0-3) Basophils (%) (Auto) 0 % (0-3) Neutrophils # (Auto) 5.0 x10^3/uL (1.8-7.7) Lymphocytes # (Auto) 1.1 x10^3/uL (1.0-4.8) Monocytes # (Auto) 0.5 x10^3/uL (0.0-1.1) Eosinophils # (Auto) 0.2 x10^3/uL (0.0-0.7) Basophils # (Auto) 0.0 x10^3/uL (0.0-0.2) Sodium Level 141 mmol/L (136-145) Potassium Level 4.8 mmol/L (3.5-5.1) Chloride Level 103 mmol/L (98-107) Carbon Dioxide Level 27 mmol/L (21-32) Anion Gap 11 (6-14) Blood Urea Nitrogen 12 mg/dL (7-20) Creatinine 0.8 mg/dL (0.6-1.0) Estimated GFR (Cockcroft-Gault) 79.4 BUN/Creatinine Ratio 15 (6-20) Glucose Level 141 mg/dL (70-99) Lactic Acid Level 1.2 mmol/L (0.4-2.0) Calcium Level 9.4 mg/dL (8.5-10.1) Magnesium Level 2.2 mg/dL (1.8-2.4) Total Bilirubin 1.7 mg/dL (0.2-1.0) Aspartate Amino Transf (AST/SGOT) 511 U/L (15-37) Alanine Aminotransferase (ALT/SGPT) 791 U/L (14-59) Alkaline Phosphatase 286 U/L (46-116) Total Protein 7.5 g/dL (6.4-8.2) Albumin 3.9 g/dL (3.4-5.0) Albumin/Globulin Ratio 1.1 (1.0-1.7) Lipase 177 U/L (73-393) Serum Test, Qualitative Negative (NEG) Urine Collection Type Unknown Urine Color Yellow Urine Clarity Clear Urine pH 7.5 (<5.0-8.0) Urine Specific [place] 1.015 (1.000-1.030) Urine Protein Trace mg/dL (NEG-TRACE) Urine Glucose (UA) Negative mg/dL (NEG) Urine Ketones (Stick) Negative mg/dL (NEG) Urine Blood Negative (NEG) Urine Nitrite Negative (NEG) Urine Bilirubin Small (NEG) Urine Urobilinogen Dipstick 2.0 mg/dL (0.2 mg/dL) Urine Leukocyte Esterase Trace (NEG) Urine RBC Occ /HPF (0-2) Urine WBC Occ /HPF (0-4) Urine Squamous Epithelial Cells Mod /LPF Urine Bacteria 0 /HPF (0-FEW) Urine Mucus Slight /LPF Laboratory Tests Test 09/24/21 06:35 09/24/21 07:15 White Blood Count 6.8 x10^3/uL (4.0-11.0) Red Blood Count 4.81 x10^6/uL (3.50-5.40) Hemoglobin 13.9 g/dL (12.0-15.5) Hematocrit 42.7 % (36.0-47.0) Mean Corpuscular Volume 89 fL (79-100) Mean Corpuscular Hemoglobin 29 pg (25-35) Mean Corpuscular Hemoglobin Concent 33 g/dL (31-37) Red Cell Distribution Width 13.8 % (11.5-14.5) Platelet Count 292 x10^3/uL (140-400) Neutrophils (%) (Auto) 74 % (31-73) Lymphocytes (%) (Auto) 16 % (24-48) Monocytes (%) (Auto) 7 % (0-9) Eosinophils (%) (Auto) 3 % (0-3) Basophils (%) (Auto) 0 % (0-3) Neutrophils # (Auto) 5.0 x10^3/uL (1.8-7.7) Lymphocytes # (Auto) 1.1 x10^3/uL (1.0-4.8) Monocytes # (Auto) 0.5 x10^3/uL (0.0-1.1) Eosinophils # (Auto) 0.2 x10^3/uL (0.0-0.7) Basophils # (Auto) 0.0 x10^3/uL (0.0-0.2) Sodium Level 141 mmol/L (136-145) Potassium Level 4.8 mmol/L (3.5-5.1) Chloride Level 103 mmol/L (98-107) Carbon Dioxide Level 27 mmol/L (21-32) Anion Gap 11 (6-14) Blood Urea Nitrogen 12 mg/dL (7-20) Creatinine 0.8 mg/dL (0.6-1.0) Estimated GFR (Cockcroft-Gault) 79.4 BUN/Creatinine Ratio 15 (6-20) Glucose Level 141 mg/dL (70-99) Lactic Acid Level 1.2 mmol/L (0.4-2.0) Calcium Level 9.4 mg/dL (8.5-10.1) Magnesium Level 2.2 mg/dL (1.8-2.4) Total Bilirubin 1.7 mg/dL (0.2-1.0) Aspartate Amino Transf (AST/SGOT) 511 U/L (15-37) Alanine Aminotransferase (ALT/SGPT) 791 U/L (14-59) Alkaline Phosphatase 286 U/L (46-116) Total Protein 7.5 g/dL (6.4-8.2) Albumin 3.9 g/dL (3.4-5.0) Albumin/Globulin Ratio 1.1 (1.0-1.7) Lipase 177 U/L (73-393) Serum Test, Qualitative Negative (NEG) Urine Collection Type Unknown Urine Color Yellow Urine Clarity Clear Urine pH 7.5 (<5.0-8.0) Urine Specific [place] 1.015 (1.000-1.030) Urine Protein Trace mg/dL (NEG-TRACE) Urine Glucose (UA) Negative mg/dL (NEG) Urine Ketones (Stick) Negative mg/dL (NEG) Urine Blood Negative (NEG) Urine Nitrite Negative (NEG) Urine Bilirubin Small (NEG) Urine Urobilinogen Dipstick 2.0 mg/dL (0.2 mg/dL) Urine Leukocyte Esterase Trace (NEG) Urine RBC Occ /HPF (0-2) Urine WBC Occ /HPF (0-4) Urine Squamous Epithelial Cells Mod /LPF Urine Bacteria 0 /HPF (0-FEW) Urine Mucus Slight /LPF Assessment/Plan Assessment/Plan Nausea vomiting abdominal pain secondary to suspected choledocholithiasis, recent cholecystectomy -Worsening abdominal pain in setting of recent cholecystectomy. Concern for choledocholithiasis -We will consult to GI for MRCP evaluation -As needed pain control and nausea vomiting control -No signs of infection -Home meds as indicated -DVT prophylaxis -As tolerated diet. N.p.o. midnight Justifications for Admission Other Justification Acute abdominal pain due to cholelithiasis STAN LOBATO MD Sep 24, 2021 18:16
[2021-09-24 19:00] VITALS: BP 137/85
[2021-09-24] MEDS: SENNOSIDES/DOCUSATE 8.6/50MG TABLET. PO SCH (21:00)
[2021-09-24] MEDS: HEPARIN for SUB-Q USE 5,000 UNIT/ML VIAL. SQ SCH (21:16)
[2021-09-24 23:00] VITALS: BP 140/91
[2021-09-25] MEDS: MORPHINE SULFATE 4 MG/ML INJ. IVP PRN ×2 (02:48→22:03)
[2021-09-25 03:00] VITALS: BP 149/86
[2021-09-25 07:00] VITALS: BP 152/100
[2021-09-25] MEDS: HEPARIN for SUB-Q USE 5,000 UNIT/ML VIAL. SQ SCH ×2 (09:00→21:00)
[2021-09-25] MEDS: SENNOSIDES/DOCUSATE 8.6/50MG TABLET. PO SCH ×2 (09:00→21:00)
--- NOTE | 2021-09-25 09:15 | NUR ---
Heparin held for procedure.
--- NOTE | 2021-09-25 09:27 | PDOC ---
Date of Service: DATE: 09/25/21 TIME: 09:27 Objective: Vital Signs: Vital Signs Date Time Temp Pulse Resp B/P (MAP) Pulse Ox O2 Delivery O2 Flow Rate FiO2 09/25/21 08:00 Room Air 09/25/21 07:00 98.1 78 13 152/100 (117) 95 98.1 Imaging: CT A/P 09/24/21 IMPRESSION: 1. Stable findings consistent with relative recent cholecystectomy. There is a percutaneous drainage catheter terminating along the falciform ligament and a small amount of postoperative stranding along the ventral liver and ventral abdominal wall fat. There is also stable biliary ductal dilatation likely due to reservoir effect. No obstructing lesion or drainable fluid collection is seen. 2. Stable left greater than right lower lobe airspace disease likely due to atelectasis. IOC 09/16/21 IMPRESSION: There is a probable choledocholith near the ampulla. Abd US 09/16/21 FINDINGS: Liver: The liver is normal in size measuring 13 cm in length. Mildly increased hepatic echogenicity. No focal liver lesion. Gallbladder: The gallbladder is normal in caliber. There is cholelithiasis and sludge in the gallbladder. No gallbladder wall thickening. Bile ducts: The common bile duct is normal measuring 4 mm. No intrahepatic biliary duct dilatation. Right kidney: The right kidney measures 11.5 x 3.8 x 3.8 cm. Normal cortical thickness and echogenicity. No hydronephrosis. Other: IVC is patent at the level of the liver. The pancreas is not well visualized. IMPRESSION: Cholelithiasis and sludge in the gallbladder. No evidence of acute cholecystitis. ADDENDUM #1 Upon further review, the common bile duct is likely mildly dilated. This is better seen on subsequent CT abdomen pelvis from same day. CT A/P 09/16/21 IMPRESSION: 1. Cholelithiasis. The gallbladder is mildly distended and there is questionable slight wall thickening although this was not appreciated on ultrasound from earlier in the day. Correlate clinically for acute cholecystitis. 2. Dilated common bile duct measuring 8 mm with abrupt termination at the ampulla. Recommend MRCP to evaluate for obstructing stone or lesion. PE: out of room - no exam A/P: Abdominal pain Elevated LFTs S/p cholecystectomy, abnormal IOC - air bubble suspected previously w/ recommendation for outpt MRCP -- Out of room for MRCP, will follow-up on results and recheck LFTs. Update: MRCP results FINDINGS: Liver: There is no significant steatosis. There are no suspicious hepatic lesions. Biliary tree: The gallbladder is surgically absent. A stone within the distal common duct measures 4 mm. The common duct is dilated to 9 mm. There are no suspicious pancreatic parenchymal lesions. The pancreatic duct is not dilated. Other findings: The kidneys, adrenal glands and spleen are unremarkable. B ilateral breast implants are noted. A percutaneous drain lies inferior to the right hepatic lobe. There is no associated collection. There is atelectasis in the left greater than right bases. IMPRESSION: 1. 4 mm distal common duct stone. Mild extrahepatic biliary dilatation. D/w Dr. oLuis who recommends ERCP tomorrow. D/w patient (including risk of post ERCP pancreatitis) - she understand and would like to proceed. D/w nurse - okay for clears tonight, NPO at midnight. Pt info given to GI lab. Justicifation of Admission Dx: Justifications for Admission: Justification of Admission Dx: Yes ROSE MARTIN Sep 25, 2021 09:27
[2021-09-25 11:00] VITALS: BP 130/83
--- NOTE | 2021-09-25 12:34 | NUR ---
SW following. Discussed with RN, pt from home with family, room air, NPO. GI following. MRCP today. Med Assist following for self pay status. SW will continue to follow.
[2021-09-25 12:38] LABS: ALBUMIN 3.4 g/dL (3.4-5.0); DIRECT BILIRUBIN 0.4 mg/dL (0.0-0.2); TOTAL BILIRUBIN 0.8 mg/dL (0.2-1.0)
--- NOTE | 2021-09-25 13:30 | RAD ---
EXAM: MRI ABDOMEN WITHOUT CONTRAST. HISTORY: Abdominal pain, elevated liver enzymes. TECHNIQUE: MRI of the abdomen was performed without intravenous contrast. Three-dimensional reconstru ctions of the biliary tree were also performed. COMPARISON: 09/24/2021, 09/16/2021. FINDINGS: Liver: There is no significant steatosis. There are no suspicious hepatic lesions. Biliary tree: The gallbladder is surgically absent. A stone within the distal common duct measures 4 mm. The common duct is dilated to 9 mm. There are no suspicious pancreatic parenchymal lesions. The p ancreatic duct is not dilated. Other findings: The kidneys, adrenal glands and spleen are unremarkable. Bilateral breast implants ar e noted. A percutaneous drain lies inferior to the right hepatic lobe. There is no associated collect ion. There is atelectasis in the left greater than right bases. IMPRESSION: 1. 4 mm distal common duct stone. Mild extrahepatic biliary dilatation. Electronically signed by: Katie Cano MD (09/25/2021 1:27 PM) [id number]
[2021-09-25 15:00] VITALS: BP 142/83
[2021-09-25 19:00] VITALS: BP 135/69
--- NOTE | 2021-09-25 19:59 | PDOC ---
[employer] PROGRESS NOTE Date of Service DOS: DATE: 09/25/21 TIME: 19:58 Chief Complaint Chief Complaint Nausea vomiting abdominal pain secondary to suspected choledocholithiasis, recent cholecystectomy -Worsening abdominal pain in setting of recent cholecystectomy. Concern for choledocholithiasis -We will consult to GI for MRCP evaluation --> CBD stone ERCP planned 09/26 -As needed pain control and nausea vomiting control -No signs of infection -Home meds as indicated -DVT prophylaxis -As tolerated diet. N.p.o. midnight History of Present Illness History of Present Illness Patient evaluated examined at bedside. She had just undergone MRCP was interested in results. Looks like CBD stone found plan for ERCP tomorrow. N.p.o. midnight. As needed pain control. Discussed with bedside RN. Vitals/I&O Vitals/I&O: Vital Signs Date Time Temp Pulse Resp B/P (MAP) Pulse Ox O2 Delivery O2 Flow Rate FiO2 09/25/21 19:00 97.5 63 16 135/69 (91) 96 Room Air 97.5 I & O 09/24/21 09/24/21 09/25/21 15:00 23:00 07:00 Intake Total 1000 ml Output Total 25 ml Balance 975 ml Physical Exam General: Alert, Oriented X3, Cooperative Heart: Regular rate, Normal S1, Normal S2 Lungs: Clear Abdomen: Normal bowel sounds, Soft, No hepatosplenomegaly, No masses (Mild epigastric tenderness) Extremities: No clubbing Skin: No rashes Labs Labs: Laboratory Tests Test 09/25/21 12:10 Total Bilirubin 0.8 mg/dL (0.2-1.0) Direct Bilirubin 0.4 mg/dL (0.0-0.2) Aspartate Amino Transf (AST/SGOT) 262 U/L (15-37) Alanine Aminotransferase (ALT/SGPT) 676 U/L (14-59) Alkaline Phosphatase 230 U/L (46-116) Total Protein 7.0 g/dL (6.4-8.2) Albumin 3.4 g/dL (3.4-5.0) Assessment and Plan Assessmemt and Plan Problems Medical Problems: (1) Acute postoperative abdominal pain Status: Acute (2) Nausea and vomiting Status: Acute (3) Transaminitis Status: Acute Comment Review of Relevant I have reviewed the following items pablo (where applicable) has been applied. Medications: Current Medications Medications (Trade) Dose Ordered Sig/Tung Route PRN Reason Start Time Stop Time Status Last Admin Dose Admin Heparin Sodium (Porcine) (Heparin Sodium) 5,000 unit Q12HR SQ 09/24/21 21:00 09/24/21 21:16 Justifications for Admission Other Justification Acute abdominal pain due to cholelithiasis STAN LOBATO MD Sep 25, 2021 19:59
[2021-09-25 23:00] VITALS: BP 129/78
[2021-09-26] VITALS (14 sets, daily range): BP systolic 117–155; BP diastolic 54–97
[2021-09-26] MEDS: MORPHINE SULFATE 4 MG/ML INJ. IVP PRN (01:37)
[2021-09-26 07:03] LABS: HEMATOCRIT 38.8 % (36.0-47.0); HEMOGLOBIN 12.8 g/dL (12.0-15.5); RED BLOOD COUNT 4.41 x10^6/uL (3.50-5.40); RED CELL DISTRIBUTION WIDTH 13.5 % (11.5-14.5); WHITE BLOOD COUNT 5.6 x10^3/uL (4.0-11.0)
[2021-09-26 07:04] LABS: ALBUMIN 3.3 g/dL (3.4-5.0); ALBUMIN/GLOBULIN RATIO 0.9 (1.0-1.7); CREATININE 0.8 mg/dL (0.6-1.0); GFR 79.4; POTASSIUM 3.9 mmol/L (3.5-5.1); TOTAL BILIRUBIN 0.9 mg/dL (0.2-1.0); TOTAL PROTEIN 6.9 g/dL (6.4-8.2)
[2021-09-26 07:14] LABS: PROTHROMBIN TIME PATIENT 13.1 SEC (11.7-14.0)
[2021-09-26] MEDS: HEPARIN for SUB-Q USE 5,000 UNIT/ML VIAL. SQ SCH ×2 (08:03→20:37)
[2021-09-26] MEDS: SENNOSIDES/DOCUSATE 8.6/50MG TABLET. PO SCH ×2 (08:03→21:00)
--- NOTE | 2021-09-26 08:03 | NUR ---
Heparin held for procedure.
[2021-09-26] MEDS: MORPHINE SULFATE 2 MG/ML INJ. IVP PRN ×2 (08:08→14:01)
--- NOTE | 2021-09-26 08:49 | PDOC ---
GIOVANI FINE GLUE SPREADER 09/26/21 0849: SURGICAL PROGRESS NOTE DATE: 09/26/21 TIME: 08:47 Subjective pt readmitted with possible choledocholithiasis, underwent lap yousuf 09/16, concern for abnormal IOC, GI evaluated, no ERCP at that time, discharged home with drain, returned to ER x 2--now plans for ERCP today with abnormal MRCP Vital Signs Vital Signs Date Time Temp Pulse Resp B/P (MAP) Pulse Ox O2 Delivery O2 Flow Rate FiO2 09/26/21 08:08 Room Air 09/26/21 07:00 98.3 65 18 135/84 (101) 97 98.3 I&O Intake and Output 09/26/21 06:59 Output Total 30 ml Balance -30 ml Output Drainage Total 30 ml # Voids 3 General: Alert, Oriented X3, Cooperative Abdomen: Soft, Other (floridalma serous) Labs Laboratory Tests Test 09/25/21 12:10 09/26/21 05:50 Total Bilirubin 0.8 mg/dL (0.2-1.0) 0.9 mg/dL (0.2-1.0) Direct Bilirubin 0.4 mg/dL (0.0-0.2) Aspartate Amino Transf (AST/SGOT) 262 U/L (15-37) 179 U/L (15-37) Alanine Aminotransferase (ALT/SGPT) 676 U/L (14-59) 594 U/L (14-59) Alkaline Phosphatase 230 U/L (46-116) 195 U/L (46-116) Total Protein 7.0 g/dL (6.4-8.2) 6.9 g/dL (6.4-8.2) Albumin 3.4 g/dL (3.4-5.0) 3.3 g/dL (3.4-5.0) White Blood Count 5.6 x10^3/uL (4.0-11.0) Red Blood Count 4.41 x10^6/uL (3.50-5.40) Hemoglobin 12.8 g/dL (12.0-15.5) Hematocrit 38.8 % (36.0-47.0) Mean Corpuscular Volume 88 fL (79-100) Mean Corpuscular Hemoglobin 29 pg (25-35) Mean Corpuscular Hemoglobin Concent 33 g/dL (31-37) Red Cell Distribution Width 13.5 % (11.5-14.5) Platelet Count 267 x10^3/uL (140-400) Prothrombin Time 13.1 SEC (11.7-14.0) Prothromb Time International Ratio 1.0 (0.8-1.1) Sodium Level 142 mmol/L (136-145) Potassium Level 3.9 mmol/L (3.5-5.1) Chloride Level 105 mmol/L (98-107) Carbon Dioxide Level 29 mmol/L (21-32) Anion Gap 8 (6-14) Blood Urea Nitrogen 6 mg/dL (7-20) Creatinine 0.8 mg/dL (0.6-1.0) Estimated GFR (Cockcroft-Gault) 79.4 BUN/Creatinine Ratio 8 (6-20) Glucose Level 99 mg/dL (70-99) Calcium Level 9.0 mg/dL (8.5-10.1) Albumin/Globulin Ratio 0.9 (1.0-1.7) Laboratory Tests Test 09/25/21 12:10 09/26/21 05:50 Total Bilirubin 0.8 mg/dL (0.2-1.0) 0.9 mg/dL (0.2-1.0) Direct Bilirubin 0.4 mg/dL (0.0-0.2) Aspartate Amino Transf (AST/SGOT) 262 U/L (15-37) 179 U/L (15-37) Alanine Aminotransferase (ALT/SGPT) 676 U/L (14-59) 594 U/L (14-59) Alkaline Phosphatase 230 U/L (46-116) 195 U/L (46-116) Total Protein 7.0 g/dL (6.4-8.2) 6.9 g/dL (6.4-8.2) Albumin 3.4 g/dL (3.4-5.0) 3.3 g/dL (3.4-5.0) White Blood Count 5.6 x10^3/uL (4.0-11.0) Red Blood Count 4.41 x10^6/uL (3.50-5.40) Hemoglobin 12.8 g/dL (12.0-15.5) Hematocrit 38.8 % (36.0-47.0) Mean Corpuscular Volume 88 fL (79-100) Mean Corpuscular Hemoglobin 29 pg (25-35) Mean Corpuscular Hemoglobin Concent 33 g/dL (31-37) Red Cell Distribution Width 13.5 % (11.5-14.5) Platelet Count 267 x10^3/uL (140-400) Prothrombin Time 13.1 SEC (11.7-14.0) Prothromb Time International Ratio 1.0 (0.8-1.1) Sodium Level 142 mmol/L (136-145) Potassium Level 3.9 mmol/L (3.5-5.1) Chloride Level 105 mmol/L (98-107) Carbon Dioxide Level 29 mmol/L (21-32) Anion Gap 8 (6-14) Blood Urea Nitrogen 6 mg/dL (7-20) Creatinine 0.8 mg/dL (0.6-1.0) Estimated GFR (Cockcroft-Gault) 79.4 BUN/Creatinine Ratio 8 (6-20) Glucose Level 99 mg/dL (70-99) Calcium Level 9.0 mg/dL (8.5-10.1) Albumin/Globulin Ratio 0.9 (1.0-1.7) Problem List Problems Medical Problems: (1) Acute postoperative abdominal pain Status: Acute (2) Nausea and vomiting Status: Acute (3) Transaminitis Status: Acute Assessment/Plan s/p lap yousuf, ERCP today can remove FLORIDAMLA after ERCP Justicifation of Admission Dx: Justifications for Admission: Justification of Admission Dx: Yes JORGE ARRIAGA MD 09/26/21 1305: SURGICAL PROGRESS NOTE Assessment/Plan Pt out of room will f/u in AM GIOVANI FINE APRN Sep 26, 2021 08:49 JORGE ARRIAGA MD Sep 26, 2021 13:05
[2021-09-26] MEDS ORDERED: IOHEXOL 300 MG/ML 100ML VIAL. ONE (12:20)
[2021-09-26] MEDS ORDERED: SUCCINYLCHOLINE 200 MG/10 ML VIAL. ONE (13:00)
[2021-09-26] MEDS ORDERED: GLYCOPYRROLATE 1 MG/5 ML SYRINGE. ONE (13:00)
[2021-09-26] MEDS ORDERED: PROPOFOL 10 MG/ML (20ML) VIAL. IV ONE (13:00)
[2021-09-26] MEDS ORDERED: ROCURONIUM 50 MG/5 ML VIAL. ONE (13:00)
[2021-09-26] MEDS ORDERED: IOHEXOL 300 MG/ML 100ML VIAL. INT CAT ONE (13:32)
--- NOTE | 2021-09-26 13:44 | PDOC4 ---
Operative Note Operative Note ERCP with sphicterotomy/stone extraction Meds propofol per anesthesia Pre-op dx abnl MRCP/retained CBD stone post-op dx s/p sphincterotomy/stone extraction Plan advance diet in am repeat lfts/amylase/lipase DANIEL RIVAS MD Sep 26, 2021 13:44
--- NOTE | 2021-09-26 16:52 | RAD ---
DG ERCP ENDO BILIARY DUCTAL SYS History: Reason: choledocholithiasis,FL TIME 2:49,STONE REMOVED / Spl. Instructions: SPHINCTEROTOMY W ITH BALLOON SWEEP. / History: Comparison: None. Technique/findings: Fluoroscopy provided during ERCP. Balloon was performed. See procedure note for further details. Fluoroscopy time: 2 minutes 49 seconds. Number of fluoroscopic images: 6 Impression: 1. Fluoroscopy provided during ERCP. Electronically signed by: Will Bethea DO (09/26/2021 4:50 PM) [id number]
--- NOTE | 2021-09-26 17:48 | PDOC ---
[employer] PROGRESS NOTE Date of Service DOS: DATE: 09/26/21 TIME: 17:47 Chief Complaint Chief Complaint Nausea vomiting abdominal pain secondary to suspected choledocholithiasis, recent cholecystectomy -Worsening abdominal pain in setting of recent cholecystectomy. Concern for choledocholithiasis -We will consult to GI for MRCP evaluation --> CBD stone ERCP planned 09/26 -As needed pain control and nausea vomiting control -No signs of infection -Home meds as indicated -DVT prophylaxis -As tolerated diet. N.p.o. midnight History of Present Illness History of Present Illness Patient evaluated examined at bedside. She had just undergone MRCP was interested in results. Looks like CBD stone found plan for ERCP tomorrow. N.p.o. midnight. As needed pain control. Discussed with bedside RN. 09/26 Patient off floor for ERCP. We will follow up after. Vitals/I&O Vitals/I&O: Vital Signs Date Time Temp Pulse Resp B/P (MAP) Pulse Ox O2 Delivery O2 Flow Rate FiO2 09/26/21 16:09 97.9 79 20 153/89 (110) 95 Room Air 97.9 09/26/21 14:01 3.0 I & O 09/25/21 09/25/21 09/26/21 15:00 23:00 07:00 Output Total 30 ml Balance -30 ml Physical Exam General: Alert, Oriented X3, Cooperative Heart: Regular rate, Normal S1, Normal S2 Lungs: Clear Abdomen: Soft, Other (floridalma serous) Extremities: No clubbing Skin: No rashes Labs Labs: Laboratory Tests Test 09/26/21 05:50 White Blood Count 5.6 x10^3/uL (4.0-11.0) Red Blood Count 4.41 x10^6/uL (3.50-5.40) Hemoglobin 12.8 g/dL (12.0-15.5) Hematocrit 38.8 % (36.0-47.0) Mean Corpuscular Volume 88 fL (79-100) Mean Corpuscular Hemoglobin 29 pg (25-35) Mean Corpuscular Hemoglobin Concent 33 g/dL (31-37) Red Cell Distribution Width 13.5 % (11.5-14.5) Platelet Count 267 x10^3/uL (140-400) Prothrombin Time 13.1 SEC (11.7-14.0) Prothromb Time International Ratio 1.0 (0.8-1.1) Sodium Level 142 mmol/L (136-145) Potassium Level 3.9 mmol/L (3.5-5.1) Chloride Level 105 mmol/L (98-107) Carbon Dioxide Level 29 mmol/L (21-32) Anion Gap 8 (6-14) Blood Urea Nitrogen 6 mg/dL (7-20) Creatinine 0.8 mg/dL (0.6-1.0) Estimated GFR (Cockcroft-Gault) 79.4 BUN/Creatinine Ratio 8 (6-20) Glucose Level 99 mg/dL (70-99) Calcium Level 9.0 mg/dL (8.5-10.1) Total Bilirubin 0.9 mg/dL (0.2-1.0) Aspartate Amino Transf (AST/SGOT) 179 U/L (15-37) Alanine Aminotransferase (ALT/SGPT) 594 U/L (14-59) Alkaline Phosphatase 195 U/L (46-116) Total Protein 6.9 g/dL (6.4-8.2) Albumin 3.3 g/dL (3.4-5.0) Albumin/Globulin Ratio 0.9 (1.0-1.7) Assessment and Plan Assessmemt and Plan Problems Medical Problems: (1) Acute postoperative abdominal pain Status: Acute (2) Nausea and vomiting Status: Acute (3) Transaminitis Status: Acute Comment Review of Relevant I have reviewed the following items pablo (where applicable) has been applied. Medications: Current Medications Medications (Trade) Dose Ordered Sig/Tung Route PRN Reason Start Time Stop Time Status Last Admin Dose Admin Iohexol (Omnipaque 300 Mg/ml) 100 ml STK-MED ONCE INT CAT 09/26/21 13:32 09/26/21 14:05 DC 09/26/21 13:32 Justifications for Admission Other Justification Acute abdominal pain due to cholelithiasis STAN LOBATO MD Sep 26, 2021 17:48
[2021-09-27 02:34] VITALS: BP 125/79
[2021-09-27 05:02] LABS: HEMATOCRIT 39.3 % (36.0-47.0); RED BLOOD COUNT 4.53 x10^6/uL (3.50-5.40); RED CELL DISTRIBUTION WIDTH 13.3 % (11.5-14.5); WHITE BLOOD COUNT 6.1 x10^3/uL (4.0-11.0)
[2021-09-27 05:45] LABS: ALBUMIN 3.4 g/dL (3.4-5.0); ALBUMIN/GLOBULIN RATIO 0.9 (1.0-1.7); CALCIUM 9.2 mg/dL (8.5-10.1); CREATININE 0.6 mg/dL (0.6-1.0); GFR 110.7; POTASSIUM 3.9 mmol/L (3.5-5.1); TOTAL BILIRUBIN 0.8 mg/dL (0.2-1.0)
[2021-09-27 07:15] VITALS: BP 119/71
[2021-09-27] MEDS: SENNOSIDES/DOCUSATE 8.6/50MG TABLET. PO SCH (07:59)
[2021-09-27] MEDS: HEPARIN for SUB-Q USE 5,000 UNIT/ML VIAL. SQ SCH (07:59)
--- NOTE | 2021-09-27 08:55 | PDOC ---
GIOVANI PARR LITHOGRAPH DESIGNER 09/27/21 0855: SURGICAL PROGRESS NOTE DATE: 09/27/21 TIME: 08:54 Subjective resting tolerating diet feels much better Vital Signs Vital Signs Date Time Temp Pulse Resp B/P (MAP) Pulse Ox O2 Delivery O2 Flow Rate FiO2 09/27/21 07:15 98.4 82 20 119/71 (87) 96 Room Air 98.4 09/26/21 14:01 3.0 I&O Intake and Output 09/27/21 06:59 Intake Total 720 ml Balance 720 ml Intake Oral 720 ml # Voids 3 General: Alert, Oriented X3, Cooperative Abdomen: Soft, No tenderness Labs Laboratory Tests Test 09/25/21 12:10 09/26/21 05:50 09/27/21 04:20 Total Bilirubin 0.8 mg/dL (0.2-1.0) 0.9 mg/dL (0.2-1.0) 0.8 mg/dL (0.2-1.0) Direct Bilirubin 0.4 mg/dL (0.0-0.2) Aspartate Amino Transf (AST/SGOT) 262 U/L (15-37) 179 U/L (15-37) 138 U/L (15-37) Alanine Aminotransferase (ALT/SGPT) 676 U/L (14-59) 594 U/L (14-59) 523 U/L (14-59) Alkaline Phosphatase 230 U/L (46-116) 195 U/L (46-116) 181 U/L (46-116) Total Protein 7.0 g/dL (6.4-8.2) 6.9 g/dL (6.4-8.2) 7.0 g/dL (6.4-8.2) Albumin 3.4 g/dL (3.4-5.0) 3.3 g/dL (3.4-5.0) 3.4 g/dL (3.4-5.0) White Blood Count 5.6 x10^3/uL (4.0-11.0) 6.1 x10^3/uL (4.0-11.0) Red Blood Count 4.41 x10^6/uL (3.50-5.40) 4.53 x10^6/uL (3.50-5.40) Hemoglobin 12.8 g/dL (12.0-15.5) 13.0 g/dL (12.0-15.5) Hematocrit 38.8 % (36.0-47.0) 39.3 % (36.0-47.0) Mean Corpuscular Volume 88 fL (79-100) 87 fL (79-100) Mean Corpuscular Hemoglobin 29 pg (25-35) 29 pg (25-35) Mean Corpuscular Hemoglobin Concent 33 g/dL (31-37) 33 g/dL (31-37) Red Cell Distribution Width 13.5 % (11.5-14.5) 13.3 % (11.5-14.5) Platelet Count 267 x10^3/uL (140-400) 305 x10^3/uL (140-400) Prothrombin Time 13.1 SEC (11.7-14.0) Prothromb Time International Ratio 1.0 (0.8-1.1) Sodium Level 142 mmol/L (136-145) 139 mmol/L (136-145) Potassium Level 3.9 mmol/L (3.5-5.1) 3.9 mmol/L (3.5-5.1) Chloride Level 105 mmol/L (98-107) 105 mmol/L (98-107) Carbon Dioxide Level 29 mmol/L (21-32) 26 mmol/L (21-32) Anion Gap 8 (6-14) 8 (6-14) Blood Urea Nitrogen 6 mg/dL (7-20) 8 mg/dL (7-20) Creatinine 0.8 mg/dL (0.6-1.0) 0.6 mg/dL (0.6-1.0) Estimated GFR (Cockcroft-Gault) 79.4 110.7 BUN/Creatinine Ratio 8 (6-20) 13 (6-20) Glucose Level 99 mg/dL (70-99) 107 mg/dL (70-99) Calcium Level 9.0 mg/dL (8.5-10.1) 9.2 mg/dL (8.5-10.1) Albumin/Globulin Ratio 0.9 (1.0-1.7) 0.9 (1.0-1.7) Amylase Level 48 U/L (25-115) Lipase 90 U/L (73-393) Laboratory Tests Test 09/27/21 04:20 White Blood Count 6.1 x10^3/uL (4.0-11.0) Red Blood Count 4.53 x10^6/uL (3.50-5.40) Hemoglobin 13.0 g/dL (12.0-15.5) Hematocrit 39.3 % (36.0-47.0) Mean Corpuscular Volume 87 fL (79-100) Mean Corpuscular Hemoglobin 29 pg (25-35) Mean Corpuscular Hemoglobin Concent 33 g/dL (31-37) Red Cell Distribution Width 13.3 % (11.5-14.5) Platelet Count 305 x10^3/uL (140-400) Sodium Level 139 mmol/L (136-145) Potassium Level 3.9 mmol/L (3.5-5.1) Chloride Level 105 mmol/L (98-107) Carbon Dioxide Level 26 mmol/L (21-32) Anion Gap 8 (6-14) Blood Urea Nitrogen 8 mg/dL (7-20) Creatinine 0.6 mg/dL (0.6-1.0) Estimated GFR (Cockcroft-Gault) 110.7 BUN/Creatinine Ratio 13 (6-20) Glucose Level 107 mg/dL (70-99) Calcium Level 9.2 mg/dL (8.5-10.1) Total Bilirubin 0.8 mg/dL (0.2-1.0) Aspartate Amino Transf (AST/SGOT) 138 U/L (15-37) Alanine Aminotransferase (ALT/SGPT) 523 U/L (14-59) Alkaline Phosphatase 181 U/L (46-116) Total Protein 7.0 g/dL (6.4-8.2) Albumin 3.4 g/dL (3.4-5.0) Albumin/Globulin Ratio 0.9 (1.0-1.7) Amylase Level 48 U/L (25-115) Lipase 90 U/L (73-393) Problem List Problems Medical Problems: (1) Acute postoperative abdominal pain Status: Acute (2) Nausea and vomiting Status: Acute (3) Transaminitis Status: Acute Assessment/Plan s/p ercp drain out ok to dc from surgical pov Justicifation of Admission Dx: Justifications for Admission: Justification of Admission Dx: Yes JORGE ARRIAGA MD 09/27/21 0948: SURGICAL PROGRESS NOTE Assessment/Plan Pt seen and examined. Agree with Ms. Parr's note Pt feels better abd soft OK to d/c GIOVANI PARR APRN Sep 27, 2021 08:55 JORGE ARRIAGA MD Sep 27, 2021 09:48
--- NOTE | 2021-09-27 09:33 | PDOC ---
Date of Service: DATE: 09/27/21 TIME: 09:29 Subjective: Subjective: Feels much better, no pain, tolerating liquids, wants to go home. Objective: Objective: Normal amylase and lipase. Vital Signs: Vital Signs Date Time Temp Pulse Resp B/P (MAP) Pulse Ox O2 Delivery O2 Flow Rate FiO2 09/27/21 07:15 98.4 82 20 119/71 (87) 96 Room Air 98.4 09/26/21 14:01 3.0 Labs: Laboratory Tests Test 09/27/21 04:20 White Blood Count 6.1 x10^3/uL Red Blood Count 4.53 x10^6/uL Hemoglobin 13.0 g/dL Hematocrit 39.3 % Mean Corpuscular Volume 87 fL Mean Corpuscular Hemoglobin 29 pg Mean Corpuscular Hemoglobin Concent 33 g/dL Red Cell Distribution Width 13.3 % Platelet Count 305 x10^3/uL Sodium Level 139 mmol/L Potassium Level 3.9 mmol/L Chloride Level 105 mmol/L Carbon Dioxide Level 26 mmol/L Anion Gap 8 Blood Urea Nitrogen 8 mg/dL Creatinine 0.6 mg/dL Estimated GFR (Cockcroft-Gault) 110.7 BUN/Creatinine Ratio 13 Glucose Level 107 mg/dL Calcium Level 9.2 mg/dL Total Bilirubin 0.8 mg/dL Aspartate Amino Transf (AST/SGOT) 138 U/L Alanine Aminotransferase (ALT/SGPT) 523 U/L Alkaline Phosphatase 181 U/L Total Protein 7.0 g/dL Albumin 3.4 g/dL Albumin/Globulin Ratio 0.9 Amylase Level 48 U/L Lipase 90 U/L Imaging: ERCP 09/26 Pre-op dx abnl MRCP/retained CBD stone post-op dx s/p sphincterotomy/stone extraction Plan advance diet in am repeat lfts/amylase/lipase PE: GEN: NAD LUNGS: CTAB HEART: RRR ABD: S/ND/NT NEURO/PSYCH: A & O 3 A/P: Abd pain - resolved Abnormal LFTs - improving Choledocholithiasis s/p ERCP/sphincterotomy/stone extraction -- Advance diet, consider DC soon if tolerates. Justicifation of Admission Dx: Justifications for Admission: Justification of Admission Dx: Yes ROSE MARTIN Sep 27, 2021 09:33
[2021-09-27] MEDS ORDERED: OXYC1TAB15 PO (10:05)
--- NOTE | 2021-09-27 10:10 | DISCH ---
DISCHARGE INSTRUCTIONS Condition on Discharge Condition on Discharge: Stable Activity After Discharge Activity Instructions for Disc: Activity as tolerated Lifting Instructions after Dis: Do not lift >10 pounds Exercise Instruction after Dis: Walk 30 min, 5 x per week Driving Instructions after Dis: Do not drive today Weight Bearing Status after Di: No restrictions Diet after Discharge Diet after Discharge: Cardiac Diet Texture: Regular Follow-Up Follow up with: PCP within 2 weeks of discharge Follow Up With: Gastroenterology as scheduled SHILO COFFEY MD Sep 27, 2021 10:10
[2021-09-27 11:03] VITALS: BP 119/71
--- NOTE | 2021-09-27 11:45 | NUR ---
Pt DC home in stable conditions with belongings accompanied by family. SL removed cath intact. DC instructions, medications and follow up appointment reviewed with patient. Denies having questions.
== END 2021-09-27 11:45 | disposition home or self-care (01) | DRG 446 ==
LOC: ER 05:43 → 4 NORTH 08:14
PROVIDERS: ADMIT Student in an Organized Health Care Education/Training Program; ATTEND Student in an Organized Health Care Education/Training Program
PROC: 0FC98ZZ Extirpation of Matter from Common Bile Duct, Via Natural or Artificial Opening Endoscopic (ICD-10-PCS; principal; 2021-09-24)
PROC: BF101ZZ Fluoroscopy of Bile Ducts using Low Osmolar Contrast (ICD-10-PCS; 2021-09-24)
DX: K80.70 Calculus of gallbladder and bile duct without cholecystitis without obstruction (principal); Z82.49 Family history of ischemic heart disease and other diseases of the circulatory system; Z90.49 Acquired absence of other specified parts of digestive tract; R74.01 Elevation of levels of liver transaminase levels
CPT/HCPCS: 36415; 43262; 74177; 74181; 74328; 80053; 80076; 81001; 82150; 83605; 83690; 83735; 84703; 85025; 85027; 85610; 87077; 87086; 87186; 96361; 96374; 96375; 96376; C1769; J0330; J1644; J2270; J2405; J2704; J3490; J7030; J7042; Q9967; 99285-25; G0378